=== PATIENT | female | born 1965 | race Caucasian/White ===

== ENCOUNTER 2018-08-10 14:09 | Inpatient (IN) ==
[2018-08-10] MEDS ORDERED: D5% in Water 1,000 ML IVC PRN (19:18)
[2018-08-10] MEDS ORDERED: *HR* Dextrose 50 % in Water (Syg) 50 ML SYRINGE IVP PRN (19:18)
[2018-08-10] MEDS ORDERED: Dextrose Gel 15 GM/37.5 ML TUBE PO PRN ×2 (19:18)
[2018-08-10] MEDS ORDERED: Mag Hydrox/Al Hydrox/Simeth 30 ML UDC PO PRN (19:23)
[2018-08-10] MEDS ORDERED: *HR* LORazepam 1 MG TABLET PO PRN (19:30)
[2018-08-10] MEDS: Budesonide/Formoterol 160/4.5 1 PUFF INH IH SCH (20:08)
[2018-08-10] MEDS: Insulin LISPRO 300 UNITS/3 ML VIAL SQ SCH (20:24)
[2018-08-10] MEDS: *HR* OxyCODONE Immed Rel 5 MG TABLET PO PRN (20:27)
[2018-08-10] MEDS: Famotidine 20 MG TABLET PO SCH (20:27)
[2018-08-10] MEDS: Sennosides/Docusate Sodium TABLET PO SCH (20:27)
[2018-08-11] MEDS: *HR* Enoxaparin 40 MG/0.4 ML SYRINGE SQ SCH (05:10)
[2018-08-11] MEDS: *HR* OxyCODONE Immed Rel 5 MG TABLET PO PRN ×3 (05:11→21:45)
[2018-08-11 05:45] LABS: Basophils # 0.1 K/mcL (0.0-0.2); Basophils % 0.5 %; Eosinophils # 0.2 K/mcL (0.0-0.6); Eosinophils % 1.6 %; Hematocrit 40.8 % (35.3-44.9); Immature Granulocytes % 0.4 % (0-4); Lymphocytes % 17.7 %; Mean Corpuscular HGB Conc 31.9 g/dL (31.6-35.5); Mean Corpuscular Hemoglobin 28.8 pg (28.0-33.3); Mean Corpuscular Volume 90.5 fL (83.0-100.0); Mean Platelet Volume 9.8 fL (9.4-12.4); Monocytes # 0.8 K/mcL (0.0-1.3); Monocytes % 6.7 %; Neutrophils # 8.3 K/mcL (1.6-8.9); Platelet Count 233 K/mcL (140-400); Red Blood Count 4.51 M/mcL (3.82-4.97); Red Cell Distribution Width 12.9 % (11.5-14.5); Segmented Neutrophils % 73.1 %
[2018-08-11 05:46] LABS: INR 1.1; Prothrombin Time 12.4 Seconds (9.4-12.1)
[2018-08-11 05:49] LABS: Activated Partial Thrombo Time 36.7 Seconds (26.0-36.0)
[2018-08-11] MEDS: Insulin LISPRO 300 UNITS/3 ML VIAL SQ SCH ×4 (08:27→21:36)
[2018-08-11] MEDS: hydroCHLOROthiazide 25 MG TABLET PO SCH (08:28)
[2018-08-11] MEDS: Acetaminophen 325 MG TABLET PO PRN ×2 (08:28→18:19)
[2018-08-11] MEDS: Famotidine 20 MG TABLET PO SCH ×2 (08:29→21:45)
[2018-08-11] MEDS: Sennosides/Docusate Sodium TABLET PO SCH ×2 (08:29→21:46)
[2018-08-11] MEDS: *HR* Metformin 500 MG TABLET PO SCH ×2 (08:29→18:19)
[2018-08-11] MEDS: INSULIN GLARGINE SQ SCH (08:31)
[2018-08-11] MEDS: [UNRECOGNIZED DRUG - OTHER] PO SCH (08:31)
[2018-08-11] MEDS: Budesonide/Formoterol 160/4.5 1 PUFF INH IH SCH ×2 (10:35→21:48)
[2018-08-11] MEDS: Fluticasone Propionate Nasal 50 MCG/SPRAY BOTTLE NS SCH (13:39)
[2018-08-11 13:41] LABS: Bilirubin,Urine Negative (Negative); Blood,Urine Trace-intact (Negative); Clarity,Urine Clear (Clear); Color,Urine Yellow (Yellow); Glucose,Urine (UA) Normal (Normal); Ketones,Urine Trace mg/dL (Negative); Leukocyte Esterase,Urine Trace (Negative); Nitrite,Urine Negative (Negative); Protein,Urine Negative (Neg-Trace); Specific Gravity,Urine 1.025 (1.010-1.025); Urobilinogen,Urine Normal (Normal)
[2018-08-11 13:49] LABS: RBC,Urine 0-3 per hpf (0-3); WBC,Urine 0-3 per hpf (0-3)
[2018-08-11 13:50] LABS: Squamous Epithelial Cell,Urine Few per lpf (None-Few)
--- NOTE | 2018-08-11 13:55 | Psychological Evaluation ---
Date of Encounter: 08/11/18 Time of Encounter: 01:10 History of Present Illness History of present illness: Ms. Archer is a 53 year old female admitted for left tibia fracture. She stated she slipped in laundry room abd heard her leg snap as she went down. Past Medical History - Psychiatric History Psychiatric history: Reports: bipolar, panic disorder Additional Psychiatric History: Stated she has history of counseling and has been diagnosed with "mild" bipolar () and panic disorder (2010). Home Medications and Allergies Albuterol Sulfate [Proair HFA] 2 puff IH QID 04/02/15 [History] Budesonide/Formoterol 160/4.5 [Symbicort] 2 puff IH BIDR 04/02/15 [History] Fluticasone Propionate Nasal [Flonase] 2 spray NS DAILY 04/02/15 [History] Tiotropium [Spiriva] 1 cap IH DAILY 04/02/15 [History] Albuterol Neb [Proventil Neb] 2.5 mg IH Q4HR PRN 12/29/15 [History] Bumetanide [Bumex] 2 mg PO DAILY 12/29/15 [History] Citalopram Hydrobromide [Celexa] 40 mg PO DAILY 12/29/15 [History] Metformin HCl [Fortamet] 1,000 mg PO BID 12/29/15 [History] Montelukast [Singulair] 10 mg PO HS 12/29/15 [History] Omeprazole [PriLOSEC] 20 mg PO DAILY 12/29/15 [History] Lisinopril-HCTZ 20-12.5 [Prinzide 20-12.5] 1 each PO DAILY #30 tablet 07/04/16 [Rx] Biotin 5 mg PO DAILY 02/26/17 [History] Cholecalciferol (D-3) [Vitamin D] 1,000 unit PO DAILY 02/26/17 [History] EPINEPHrine [Auvi-Q] 0.3 mg IJ DAILY PRN 02/26/17 [History] Ibuprofen [Motrin] 800 mg PO Q8HR PRN 02/26/17 [History] L.acidoph,Paracasei, B.lactis [Probiotic] 1 cap PO DAILY 02/26/17 [History] LORazepam [Ativan] 1 mg PO HS 02/26/17 [History] Magnesium Oxide [Magnesium] 500 mg PO DAILY 02/26/17 [History] Oxygen 1 each .ROUTE AD 02/26/17 [History] Pramipexole [Mirapex] 1.5 mg PO TID 02/26/17 [History] Guaifenesin [Mucinex] 600 mg PO BID PRN #20 tab.er.12h 06/27/17 [Rx] levoFLOXacin [Levofloxacin] 500 mg PO DAILY #10 tablet 06/27/17 [Rx] predniSONE [PredniSONE] 60 mg PO DAILY #5 tablet 06/27/17 [Rx] predniSONE [PredniSONE] 60 mg PO DAILY #9 tablet 02/05/18 [Rx] Allergy/AdvReac Type Severity Reaction Status Date / Time aspirin [ASA] Allergy Nose Bleed Verified 08/06/18 17:22 clarithromycin [From Biaxin] Allergy Anaphylaxis Verified 08/06/18 17:22 clindamycin Allergy Anaphylaxis Verified 08/06/18 17:22 doxycycline Allergy Anaphylaxis Verified 08/06/18 17:22 sulfamethoxazole Allergy Anaphylaxis Verified 08/06/18 17:22 [From Bactrim] trimethoprim [From Bactrim] Allergy Anaphylaxis Verified 08/06/18 17:22 venom-honey bee Allergy Nausea Verified 08/06/18 17:22 [bee venom (honey bee)] Social History - Social History Social History: Pt is a since 2013. She has 2 adult sons and 3 grandchildren. One of her adult son's recently moved in with her due to separation from . 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 - Alcohol Use Alcohol Use: unknown - Drug Use Drug Use: none Cognitive/Emotional Assessment - Cognitive Ability Abstract Thinking Ability: No Deficits Noted Verbal Communication Ability: Conversational Style Level of Alertness: Alert Speech Pattern: Normal rate Thought Process: Logical - Emotional Status Mood Description: Depressed, Anxious Affect Description: Full range Coping Ability: Verbalizes positive coping skills Additional Findings: She is having nightmares and awakening with reliving the fall and hearing the break. Assessment & Plan - Diagnosis (1) Adjustment disorder with mixed anxiety and depressed mood - Prognosis Prognosis: Good - Treatment Plan Treatment Plan/Recommendations: Reviewed deep breathing techniques, visual imagery. Downloaded Calm efraín and she will use different techniques within to calm self at night and set tone for more relaxed sleep. Treatment Frequency: will see next week if inpatient to evaluate mood and relaxation strategies. Next Session Date: 08/18/18 Procedures - Participants Therapy Participant: Patient - Session Time Session Start Time: 01:10 Session Stop Time: 01:40
--- NOTE | 2018-08-11 14:42 | Internal Med History&Physical ---
Addendum entered and electronically signed by Daquan Kaiser MD 08/12/18 16:05: I have personally performed a face to face evaluation on this patient. I have r eviewed and agree with the care plan. History and Exam by me shows: The patient was evaluated by me yesterday but the note was not complete. This documentation is being completed today for that reason. Patient's H&P is reviewed at length. She has a tibial plateau fracture and had external fixation by Dr. Nielsen at [place] for this. She is to have definitive repair, and about a week. This was delayed because of "swelling in the area." She is to have surgery again in about a week after her swelling has gone down. She has an external fixator and told the physical therapy staff that this is to move her leg. She is doing well except for no bowel movement, postop. She denies breathing or other problems. We reviewed her medications and corrected a couple minor problems. She does not use oxygen at home. Diabetes is pretty well controlled and we told her that we would need to consider the use of long-acting insulin as her home medication is not available to her here. On review of systems, she has dentition that needs to be repaired at several locations. She does not wear dentures. She is diagnosed with COPD but states this is been stable, recently. She has a history of intermittent cellulitis of her lower extremities, bilaterally. The erythema that is developing on her right jj, she is concerned about, as this is away her cellulitis usually starts. Patient has no complaint of chest discomfort, dyspnea, orthopnea, breathing problems, palpitations, nausea or vomiting, constipation or diarrhea, other changes in bowel habits, heartburn, difficulty with urination, kidney problems or kidney stones, fevers chills or sweats, rash or itching, seizures, headache or lightheadedness, heat or cold intolerance, blood problems or anemia, or other new complaints, except as mentioned above. Review of systems is otherwise negative. Examination: (Except as mentioned above): General: In no apparent distress, alert and oriented 3. Head: Atraumatic and normocephalic. Eyes: Extraocular muscles are intact, pupils equal round and reactive to light and accommodation. Sclerae anicteric. Ears: External ears are normal to inspection and hearing is grossly normal. Nose: Patent without lesion noted. Mouth: No intraoral lesions seen. Dentition is noted to have multiple caries or fractures. Neck: Supple with trachea midline. There is no thyromegaly or adenopathy and carotids are 2+ without bruit heard. Respiratory: No use of accessory muscles. Lungs are clear throughout. Normal airflow. Cardiovascular: Regular rate and rhythm without murmur appreciated. Abdomen: Bowel sounds are normal. No hepatosplenomegaly masses or tenderness. Obese and therefore difficult to palpate deeply. Extremities: No cyanosis clubbing or edema. She has an external fixator at her left lower extremity. There is marked erythema of her left calf which could represent an early cellulitis. There is no drainage, at this time, at the fixator sites. Neurological: A and O 3. Cranial nerves II through XII are intact. No focal deficits and no abnormal movements or postures. Skin: Warm and non-diaphoretic with no lesions noted. Breasts, pelvic and rectal: Not examined. She will begin therapy and we will have nursing find out when she is to have danette aj, next week so we may adjust her medications. We will use Levemir for long-acting coverage as well as sliding scale insulin. This will be started slowly so that we do not cause hypoglycemia. Because of the redness of her wound areas and calf, we will treat her empirically with vancomycin and ask for a culture of her minimal wound drainage. We will place her in isolation and obtain nasal swabs, for this reason. Because of her swelling and immobility, she will be treated with Lovenox for deep venous thrombosis prevention. Original Note: Date of Encounter: 08/11/18 Time of Encounter: 14:38 Assessment and Plan (1) Tibial plateau fracture Current visit: Yes Status: Acute Pain controlled with oxycodone. PT and OT to eval and treat. Will follow progress. Has history of MR and 2 distal pin sites with moderate amount of serous singleness drainage, slight edema and diffuse redness. wound cultures pending. Follow up with ortho as scheduled. Qualifiers: Encounter type: sequela Fracture type: closed Laterality: left Qualified Code(s): S82.142S - Displaced bicondylar fracture of left tibia, sequela (2) COPD (chronic obstructive pulmonary disease) Current visit: Yes Status: Acute Controlled with inhaled meds. Continue oxygen per nasal cannula. Wears 2 and half liters at home. Qualifiers: COPD type: unspecified COPD Qualified Code(s): J44.9 - Chronic obstructive pulmonary disease, unspecified (3) Tobacco use disorder Current visit: Yes Status: Acute Thirty-year 1 pack a day history. Denies any cravings or need for a nicotine patch at this time. (4) Diabetes type 2, controlled Current visit: Yes Status: Acute Controlled with current medication. Continue to monitor fingerstick blood sugar. Sliding scale insulin. Diabetic diet. 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 Monitor blood pressure. Qualifiers: Hypertension type: essential hypertension Qualified Code(s): I10 - Essential (primary) hypertension (6) History of MRSA infection Current visit: Yes Status: Acute wound cultures obtained to LLE pin sites. (7) Cellulitis of left lower extremity Current visit: Yes Status: Acute Wound cultures obtained and IV vancomycin ordered. Will monitor closely. Internal Medicine - H&P: HPI Admitted From: Hospital to Hospital Transfer Plans for Post Hospital Care: Home History of present illness: Ms. Archer is a 53 year old female [facility]. Patient sustained fracture after falling in her laundry room. States she felt the crack prior to the fall. States pain is controlled with oxycodone. PT and OT to eval and treat. Denies fever, chills, nausea vomiting or diarrhea. States last bowel movement was yesterday. Patient is a current smoker with a 30 year 1 pack a day history. Denies any cravings or need for nicotine patch at this time. Lives in a one level home with son. Wears oxygen at 2.5 L per nasal cannula at home. Past medical history includes anxiety, asthma, bipolar disorder, cellulitis, COPD, diabetes, fibromyalgia, hypertension, migraines, obesity, panic attacks and seizures, sleep apnea and history of MR DOWELL. Past Med Surg Social Fam HX - Past Medical History Medical history: arthritis, asthma, COPD, diabetes, GERD, hyperlipidemia, hypertension, seizures, other Additional medical history: Seizures as child, Osteoarthritis, Fibromyalgia, Cellulitis Psychiatric history: anxiety, bipolar, depression, panic disorder - Past Surgical History Surgical History: , herniorrhaphy, hysterectomy, other Additional surgical history: Left Tib Fracture, Umbilical Hernia Repair - Social History Smoking Status: Current every day smoker Packs per day: 1 Smokeless Tobacco Status: No Alcohol use: unknown Drug use: none - Family History Father Living Status: Still Living Hx Family Cardiac Disorders: Yes Grandmother Hx Family Cardiac Disorders: Yes Internal Medicine - H&P: Meds Albuterol Sulfate [Proair HFA] 2 puff IH QID 04/02/15 [History] Budesonide/Formoterol 160/4.5 [Symbicort] 2 puff IH BIDR 04/02/15 [History] Fluticasone Propionate Nasal [Flonase] 2 spray NS DAILY 04/02/15 [History] Tiotropium [Spiriva] 1 cap IH DAILY 04/02/15 [History] Albuterol Neb [Proventil Neb] 2.5 mg IH Q4HR PRN 12/29/15 [History] Bumetanide [Bumex] 2 mg PO DAILY 12/29/15 [History] Citalopram Hydrobromide [Celexa] 40 mg PO DAILY 12/29/15 [History] Metformin HCl [Fortamet] 1,000 mg PO BID 12/29/15 [History] Montelukast [Singulair] 10 mg PO HS 12/29/15 [History] Omeprazole [PriLOSEC] 20 mg PO DAILY 12/29/15 [History] Lisinopril-HCTZ 20-12.5 [Prinzide 20-12.5] 1 each PO DAILY #30 tablet 07/04/16 [Rx] Biotin 5 mg PO DAILY 02/26/17 [History] Cholecalciferol (D-3) [Vitamin D] 1,000 unit PO DAILY 02/26/17 [History] EPINEPHrine [Auvi-Q] 0.3 mg IJ DAILY PRN 02/26/17 [History] Ibuprofen [Motrin] 800 mg PO Q8HR PRN 02/26/17 [History] L.acidoph,Paracasei, B.lactis [Probiotic] 1 cap PO DAILY 02/26/17 [History] LORazepam [Ativan] 1 mg PO HS 02/26/17 [History] Magnesium Oxide [Magnesium] 500 mg PO DAILY 02/26/17 [History] Oxygen 1 each .ROUTE AD 02/26/17 [History] Pramipexole [Mirapex] 1.5 mg PO TID 02/26/17 [History] Guaifenesin [Mucinex] 600 mg PO BID PRN #20 tab.er.12h 06/27/17 [Rx] levoFLOXacin [Levofloxacin] 500 mg PO DAILY #10 tablet 06/27/17 [Rx] predniSONE [PredniSONE] 60 mg PO DAILY #5 tablet 06/27/17 [Rx] predniSONE [PredniSONE] 60 mg PO DAILY #9 tablet 02/05/18 [Rx] Allergy/AdvReac Type Severity Reaction Status Date / Time aspirin [ASA] Allergy Nose Bleed Verified 08/06/18 17:22 clarithromycin [From Biaxin] Allergy Anaphylaxis Verified 08/06/18 17:22 clindamycin Allergy Anaphylaxis Verified 08/06/18 17:22 doxycycline Allergy Anaphylaxis Verified 08/06/18 17:22 sulfamethoxazole Allergy Anaphylaxis Verified 08/06/18 17:22 [From Bactrim] trimethoprim [From Bactrim] Allergy Anaphylaxis Verified 08/06/18 17:22 venom-honey bee Allergy Nausea Verified 08/06/18 17:22 [bee venom (honey bee)] All Systems PM: A 10-system review of systems was performed and is negative for pertinent findings except as documented above in the HPI. - Constitutional Constitutional: no chills, no fever(s), no night sweats - EENT Eyes: no change in vision, no discharge, no pain, no photophobia Ears: no ear discharge, no ear pain, no tinnitus Nose, mouth and throat: no dysphagia, no nasal discharge, no neck pain, no sore throat - Cardiovascular Cardiovascular ROS IM: no chest pain, no diaphoresis, no dyspnea, no lightheadedness, no palpitations, no syncope - Respiratory Respiratory: no cough, no dyspnea, no wheezing, no excessive phlegm production - Gastrointestinal Gastrointestinal: no abdominal pain, no diarrhea, no hematemesis, no hematochezia, no melena, no nausea, no vomiting - Genitourinary Genitourinary: no change in urinary stream, no dysuria, no flank pain, no hematuria - Musculoskeletal Musculoskeletal ROS IM: no numbness, no tingling - Integumentary Integumentary IM: no rash, no unusual bruising - Neurological Neurological ROS: no confusion, no convulsions, no focal weakness, no numbness, no tingling, no tremor(s) - Hematologic/Lymphatic Hematologic/Lymphatic: no easy bruising - Constitutional Vitals: Temp Pulse Resp BP Pulse Ox 97.9 F 90 15 122/71 94 08/11/18 12:01 08/11/18 12:01 08/11/18 12:08/11/18 12:08/11/18 12:01 General appearance: Present: cooperative, A&O X 3, morbidly obese, pleasant, answers questions appropriately - Head Head exam: Present: atraumatic, normocephalic - Eye Eye exam: Present: PERRL, conjuntiva pink, sclera anicteric Pupils: Present: PERRL - Neck Neck exam general surgery: Present: supple, trachea midline. Absent: lymphadenopathy - Respiratory Respiratory exam: Present: CTAB. Absent: accessory muscle use, rales, rhonchi, wheezes - Cardiovascular Cardiovascular exam: Present: RRR, +S1, +S2. Absent: diastolic murmur, gallop, rubs, systolic murmur - GI/Abdominal GI/Abdominal exam: Present: normal bowel sounds, soft, no peritoneal signs. Absent: distended, tenderness - Extremities Exam Extremities exam: Present: warm, radial pulses palpable and symmetrical. Absent: calf tenderness, cyanotic, pedal edema Additional comments: External fixator device to left lower extremity with four pin sites. lower 2 pin sites with redness and slight swelling surrounding with serousanguinous-mod amt of drainage. - Neurological Exam Neurological exam: Present: CN II-XII intact, oriented X3, no focal deficits. Absent: pronater drift, facial droop, speech deficit - Skin Skin exam: Present: dry, intact Internal Med - H&P Results - Labs CBC & Chem 7: 08/11/18 05:35 Labs: Short CBC 08/11/18 Range/Units 05:35 WBC 11.4 H (4.3-11.1) K/mcL Hgb 13.0 (11.5-15.4) g/dL Hct 40.8 (35.3-44.9) % Plt Count 233 (140-400) K/mcL Neutrophils # 8.3 (1.6-8.9) K/mcL Urine 08/11/18 Range/Units 13:35 Urine Color Yellow (Yellow) Urine Clarity Clear (Clear) Urine pH 7.0 (5.0-8.0) pH Units Ur Specific [place] 1.025 (1.010-1.025) Urine Protein Negative (Neg-Trace) mg/dL Urine Glucose (UA) Normal (Normal) mg/dL
[2018-08-11] MEDS ORDERED: Vancomycin 1 EACH in 0.9 % Sodium Chloride 250 ML IVPB SCH (15:00)
[2018-08-11 15:36] LABS: BUN/Creatinine Ratio 18 (6-26); Blood Urea Nitrogen 12 mg/dL (6-20); eGFR For Non-African Americans > 60 (> 60)
[2018-08-11] MEDS: Insulin DETEMIR 100 UNIT/ML X5UNITS SQ SCH (21:46)
[2018-08-12] MEDS: Acetaminophen 325 MG TABLET PO PRN ×2 (02:13→08:51)
[2018-08-12] MEDS: *HR* OxyCODONE Immed Rel 5 MG TABLET PO PRN ×3 (06:10→21:02)
[2018-08-12] MEDS: *HR* Enoxaparin 40 MG/0.4 ML SYRINGE SQ SCH (06:11)
[2018-08-12] MEDS: Fluticasone Propionate Nasal 50 MCG/SPRAY BOTTLE NS SCH (08:41)
[2018-08-12] MEDS: hydroCHLOROthiazide 25 MG TABLET PO SCH (08:41)
[2018-08-12] MEDS: Sennosides/Docusate Sodium TABLET PO SCH ×2 (08:42→20:55)
[2018-08-12] MEDS: Famotidine 20 MG TABLET PO SCH ×2 (08:42→20:53)
[2018-08-12] MEDS: *HR* Metformin 500 MG TABLET PO SCH ×2 (08:42→16:53)
[2018-08-12] MEDS: Budesonide/Formoterol 160/4.5 1 PUFF INH IH SCH ×2 (08:52→21:04)
[2018-08-12] MEDS: [UNRECOGNIZED DRUG - OTHER] PO SCH (08:54)
[2018-08-12] MEDS: INSULIN GLARGINE SQ SCH (08:54)
[2018-08-12] MEDS: Insulin LISPRO 300 UNITS/3 ML VIAL SQ SCH ×4 (08:57→21:00)
--- NOTE | 2018-08-12 10:46 | Internal Med Progress Note ---
Addendum entered and electronically signed by Daquan Kaiser MD 08/12/18 15:54: I have personally performed a face to face evaluation on this patient. I have r eviewed and agree with the care plan. History and Exam by me shows: Patient is without complaint. She is pleased that she had a bowel movement this afternoon. She is to go for surgery tomorrow to have her leg repaired. She has no other issues except she is feeling very tired. We reviewed with patient and nursing her medications in anticipation of a surgery tomorrow. Discussed care with other providers and/or nursing. Patient has no complaint of chest discomfort, dyspnea, orthopnea, palpitations, nausea or vomiting, constipation or diarrhea, other changes in bowel habits, difficulty with urination, rash or itching, or other new complaints, except as mentioned above. Review of systems is otherwise negative. Examination: (Except as mentioned above): General: In no apparent distress. Alert and oriented 3. Nondiaphoretic. Head: Atraumatic and normocephalic. Respiratory: No use of accessory muscles. Lungs are clear throughout. Normal airflow. Cardiovascular: Regular rate and rhythm without murmur appreciated. Abdomen: Bowel sounds are normal. No hepatosplenomegaly mass or tenderness appreciated. Obese and therefore difficult to palpate deeply. Extremities: No cyanosis clubbing or edema. Skin: Warm and non-diaphoretic with no new lesions noted. Lovenox was stopped and her antihypertensive is to be given with a sip of water tomorrow morning at 0300. Original Note: Date of Encounter: 08/12/18 Time of Encounter: 10:44 - Assessment and plan (1) Comminuted fracture of shaft of tibia Current Visit: Yes Status: Acute Assessment and plan: Patient with external fixation to left thigh and leg, which appears to be intact. Patient with small amount of serous drainage from distal leg pin sites. Anterior left leg with erythema and is warm to touch. Patient with remote history of MRSA and has been started on vancomycin due to cellulitis of the left lower leg. Patient being prepared for possible surgery tomorrow at [facility]. Patient's status is being communicated to orthopedic surgeon for further orders and preop instructions. Patient is remained afebrile. Patient continues to have slight muscle spasms to her left leg but otherwise states that her pain has been very tolerable. We will continue with current plan of care Qualifiers: Encounter type: subsequent encounter Fracture type: closed Fracture alignment: displaced Laterality: left Fracture healing: with nonunion Qualified Code(s): S82.252K - Displaced comminuted fracture of shaft of left tibia, subsequent encounter for closed fracture with nonunion (2) COPD (chronic obstructive pulmonary disease) Current Visit: Yes Status: Acute Assessment and plan: No acute issues. Patient's lungs are clear throughout. We will continue with current medications. Qualifiers: COPD type: unspecified COPD Qualified Code(s): J44.9 - Chronic obstructive pulmonary disease, unspecified (3) Diabetes type 2, controlled Current Visit: Yes Status: Acute Assessment and plan: Acute issues. Patient's glucoses been fairly well controlled less than 200. We will continue with sliding scale coverage. 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 We will continue with current medications. Qualifiers: Hypertension type: essential hypertension Qualified Code(s): I10 - Essential (primary) hypertension (5) Constipation Current Visit: Yes Status: Acute Assessment and plan: Patient states no BM in several days. Abdomen appears distended but remains soft and nontender. Patient denies any abdominal cramping or nausea. We will review patient's scheduled laxatives. We will give a immediate acting laxative at home. Qualifiers: Constipation type: unspecified constipation type Qualified Code(s): K59.00 - Constipation, unspecified - Time Spent With Patient less than 15 minutes - Subjective Interval history: Patient appears relaxed. Patient states that she occasionally has a intermittent muscle spasm type pain to her left leg. Patient states that her pain has been tolerable with current pain medications. Patient denies any fever or chills. Patient does state she has had no BM in several days. Patient abdom en appears slightly distended, but soft with patient denying any abdominal cramping or nausea. Patient does state that she has been passing flatus - Constitutional Vitals: Temp Pulse Resp BP Pulse Ox 97.3 F L 87 18 126/59 92 08/12/18 07:00 08/12/18 07:00 08/12/18 07:00 08/12/18 07:00 08/12/18 07:00 General appearance: Present: cooperative, A&O X 3, morbidly obese, pleasant, answers questions appropriately - Head Head exam: Present: atraumatic, normocephalic - Eye Eye exam: Present: PERRL, conjuntiva pink, sclera anicteric Pupils: Present: PERRL - Neck Neck exam general surgery: Present: supple, trachea midline. Absent: lymphadenopathy - Respiratory Respiratory exam: Present: CTAB. Absent: accessory muscle use, rales, rhonchi, wheezes - Cardiovascular Cardiovascular exam: Present: RRR, +S1, +S2. Absent: diastolic murmur, gallop, rubs, systolic murmur - GI/Abdominal GI/Abdominal exam: Present: distended, normal bowel sounds, soft, no peritoneal signs. Absent: tenderness Additional comments: Abdomen appears distended, but soft and nontender. Sounds were heard to all quadrants. - Extremities Exam Extremities exam: Present: normal capillary refill, tenderness, warm, radial pulses palpable and symmetrical. Absent: calf tenderness, cyanotic, pedal edema Additional comments: Left thigh and leg with external fixation device in place. Noted slight serous type drainage from tenderness to distal leg. Lower leg very erythemic. - Neurological Exam Neurological exam: Present: CN II-XII intact, oriented X3, no focal deficits. Absent: pronater drift, facial droop, speech deficit - Skin Skin exam: Present: dry, intact Internal Medicine: Result - Labs CBC & Chem 7: 08/11/18 05:35 08/11/18 15:06 Labs: BMP 08/11/18 15:06 BUN 12 Creatinine 0.65 Urine 08/11/18 Range/Units 13:35 Urine Color Yellow (Yellow) Urine Clarity Clear (Clear) Urine pH 7.0 (5.0-8.0) pH Units Ur Specific [place] 1.025 (1.010-1.025) Urine Protein Negative (Neg-Trace) mg/dL Urine Glucose (UA) Normal (Normal) mg/dL - ABG Interpretation ABG results: PT/INR, D-dimer PT 12.4 Seconds (9.4-12.1) H 08/11/18 05:35 Consult Discharge Plan - Plan Referrals: Yu Cruz APN [Primary Care Provider] -
[2018-08-12] MEDS: Insulin DETEMIR 100 UNIT/ML X5UNITS SQ SCH (21:01)
[2018-08-13] MEDS: *HR* OxyCODONE Immed Rel 5 MG TABLET PO PRN ×2 (02:54→17:52)
[2018-08-13] MEDS: *HR* Enoxaparin 40 MG/0.4 ML SYRINGE SQ SCH (05:22)
[2018-08-13] MEDS ORDERED: Aminoglycoside Consult 1 EACH MC ONE (07:36)
[2018-08-13] MEDS: Budesonide/Formoterol 160/4.5 1 PUFF INH IH SCH ×2 (10:52→22:19)
[2018-08-13] MEDS: Insulin LISPRO 300 UNITS/3 ML VIAL SQ SCH ×3 (11:33→22:16)
[2018-08-13] MEDS: Fluticasone Propionate Nasal 50 MCG/SPRAY BOTTLE NS SCH (11:34)
[2018-08-13] MEDS: Famotidine 20 MG TABLET PO SCH ×2 (11:34→22:15)
[2018-08-13] MEDS: [UNRECOGNIZED DRUG - OTHER] PO SCH (11:34)
[2018-08-13] MEDS: *HR* Metformin 500 MG TABLET PO SCH ×2 (11:34→17:52)
[2018-08-13] MEDS: hydroCHLOROthiazide 25 MG TABLET PO SCH (11:34)
[2018-08-13] MEDS: Sennosides/Docusate Sodium TABLET PO SCH ×2 (11:35→22:15)
--- NOTE | 2018-08-13 13:22 | Internal Med Progress Note ---
Date of Encounter: 08/13/18 Time of Encounter: 13:21 - Subjective Interval history: Patient not seen today because she is having surgery at [place]. - Constitutional Vitals: Temp Pulse Resp BP Pulse Ox 99.4 F 91 17 117/64 94 08/12/18 18:59 08/12/18 18:59 08/12/18 18:59 08/12/18 18:59 08/12/18 18:59 Internal Medicine: Result - Labs CBC & Chem 7: 08/11/18 05:35 08/11/18 15:06 - ABG Interpretation ABG results: PT/INR, D-dimer PT 12.4 Seconds (9.4-12.1) H 08/11/18 05:35 Consult Discharge Plan - Plan Referrals: Yu Cruz APN [Primary Care Provider] -
[2018-08-13] MEDS: *HR* OxyCODONE/APAP 5/325 TABLET PO PRN ×2 (22:14→22:57)
[2018-08-13] MEDS: Insulin DETEMIR 100 UNIT/ML X5UNITS SQ SCH (22:18)
[2018-08-14] MEDS: *HR* OxyCODONE/APAP 5/325 TABLET PO PRN ×3 (04:48→20:32)
[2018-08-14] MEDS: *HR* Enoxaparin 40 MG/0.4 ML SYRINGE SQ SCH (04:50)
[2018-08-14 06:20] LABS: Bilirubin,Urine Negative (Negative); Blood,Urine Moderate (Negative); Clarity,Urine Clear (Clear); Color,Urine Yellow (Yellow); Glucose,Urine (UA) Normal (Normal); Ketones,Urine Negative (Negative); Leukocyte Esterase,Urine Small (Negative); Nitrite,Urine Negative (Negative); Protein,Urine Negative (Neg-Trace); Urobilinogen,Urine Normal (Normal)
[2018-08-14 06:34] LABS: Bacteria,Urine Few per hpf (None-Few); Squamous Epithelial Cell,Urine Many per lpf (None-Few); Yeast,Urine Many per hpf (None Seen)
[2018-08-14] MEDS: hydroCHLOROthiazide 25 MG TABLET PO SCH (08:16)
[2018-08-14] MEDS: Famotidine 20 MG TABLET PO SCH ×2 (08:17→20:32)
[2018-08-14] MEDS: Sennosides/Docusate Sodium TABLET PO SCH ×2 (08:17→20:32)
[2018-08-14] MEDS: Insulin LISPRO 300 UNITS/3 ML VIAL SQ SCH ×4 (08:18→20:34)
[2018-08-14] MEDS: *HR* Metformin 500 MG TABLET PO SCH ×2 (08:18→16:38)
[2018-08-14] MEDS: [UNRECOGNIZED DRUG - OTHER] PO SCH (08:19)
[2018-08-14] MEDS: Fluticasone Propionate Nasal 50 MCG/SPRAY BOTTLE NS SCH (08:19)
[2018-08-14] MEDS: Budesonide/Formoterol 160/4.5 1 PUFF INH IH SCH ×2 (08:22→20:33)
--- NOTE | 2018-08-14 14:17 | Internal Med Progress Note ---
Date of Encounter: 08/14/18 Time of Encounter: 10:00 - Assessment and plan (1) Tibial plateau fracture, left Current Visit: Yes Status: Acute Assessment and plan: She seems to be stable after her corrective surgery, yesterday. She will continue with therapy as tolerated, with advance in activity, as directed by them. Qualifiers: Encounter type: subsequent encounter Fracture type: closed Fracture healing: with routine healing Qualified Code(s): S82.142D - Displaced bicondylar fracture of left tibia, subsequent encounter for closed fracture with routine healing (2) Adjustment disorder with mixed anxiety and depressed mood Current Visit: Yes Status: Acute Assessment and plan: Clinically stable. We will continue home regimen and follow. (3) COPD (chronic obstructive pulmonary disease) Current Visit: Yes Status: Acute Assessment and plan: This seems to be stable with current regimen. Qualifiers: COPD type: unspecified COPD Qualified Code(s): J44.9 - Chronic obstructive pulmonary disease, unspecified (4) Tobacco use disorder Current Visit: Yes Status: Acute Assessment and plan: On nicotine patch and patient is strongly encouraged to quit smoking. (5) Hypertension Current Visit: Yes Status: Acute Assessment and plan: This is well-controlled, currently. Qualifiers: Hypertension type: essential hypertension Qualified Code(s): I10 - Essential (primary) hypertension (6) Diabetes type 2, controlled Current Visit: Yes Status: Acute Assessment and plan: We will continue current regimen including sliding scale. 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 Qualifiers: Constipation type: unspecified constipation type Qualified Code(s): K59.00 - Constipation, unspecified - Subjective Interval history: Patient is still having pain after surgery. She states that she feels like it is "going back to day 1." She is moving her bowels. Breathing is okay. No other acute changes. We discussed her frustration with the transfer here from [facility] and was told by a number of people that this was a poor communication episode at the [facility]. She states that they tried to blame it on [place] and that she "stuck up for us." Patient was interviewed in the presence of her son who is concerned about home health aide upon her discharge. Patient has no complaint of chest discomfort, dyspnea, orthopnea, palpitations, nausea or vomiting, constipation or diarrhea, other changes in bowel habits, d ifficulty with urination, rash or itching, or other new complaints, except as mentioned above. Review of systems is otherwise negative. I discussed management of her care with nursing staff. - Constitutional Vitals: Temp Pulse Resp BP Pulse Ox 97.5 F L 94 18 109/63 89 08/14/18 08:00 08/14/18 08:00 08/14/18 08:00 08/14/18 08:00 08/14/18 08:00 Exam: Examination: (Except as mentioned above): General: In no apparent distress. Alert and oriented 3. Nondiaphoretic. Head: Atraumatic and normocephalic. Respiratory: No use of accessory muscles. Lungs are clear throughout. Normal a irflow. Cardiovascular: Regular rate and rhythm without murmur appreciated. Abdomen: Bowel sounds are normal. No hepatosplenomegaly mass or tenderness appreciated. Morbidly obese and therefore difficult to palpate deeply. Extremities: No cyanosis clubbing or edema. She has anterior and posterior calf tenderness which is consistent with her recent surgery. Of note, she has less swelling and less erythema at the left pretibial region. Skin: Warm and non-diaphoretic with no new lesions noted. Internal Medicine: Result - Labs CBC & Chem 7: 08/11/18 05:35 08/11/18 15:06 Labs: Urine 08/14/18 Range/Units 06:00 Urine Color Yellow (Yellow) Urine Clarity Clear (Clear) Urine pH 6.0 (5.0-8.0) pH Units Ur Specific [place] 1.020 (1.010-1.025) Urine Protein Negative (Neg-Trace) mg/dL Urine Glucose (UA) Normal (Normal) mg/dL - ABG Interpretation ABG results: PT/INR, D-dimer PT 12.4 Seconds (9.4-12.1) H 08/11/18 05:35 Consult Discharge Plan - Plan Referrals: Yu Cruz APN [Primary Care Provider] -
[2018-08-14] MEDS: Insulin DETEMIR 100 UNIT/ML X5UNITS SQ SCH (20:33)
[2018-08-15] MEDS: *HR* OxyCODONE/APAP 5/325 TABLET PO PRN ×5 (02:35→23:21)
[2018-08-15] MEDS: *HR* Enoxaparin 40 MG/0.4 ML SYRINGE SQ SCH (05:52)
[2018-08-15] MEDS: Insulin LISPRO 300 UNITS/3 ML VIAL SQ SCH ×4 (07:58→20:57)
[2018-08-15] MEDS: hydroCHLOROthiazide 25 MG TABLET PO SCH (07:59)
[2018-08-15] MEDS: Fluticasone Propionate Nasal 50 MCG/SPRAY BOTTLE NS SCH (07:59)
[2018-08-15] MEDS: Famotidine 20 MG TABLET PO SCH ×2 (07:59→21:05)
[2018-08-15] MEDS: [UNRECOGNIZED DRUG - OTHER] PO SCH (08:00)
[2018-08-15] MEDS: *HR* Metformin 500 MG TABLET PO SCH ×2 (08:00→17:06)
[2018-08-15] MEDS: Sennosides/Docusate Sodium TABLET PO SCH ×2 (08:00→21:04)
[2018-08-15] MEDS: Budesonide/Formoterol 160/4.5 1 PUFF INH IH SCH ×2 (10:30→21:05)
--- NOTE | 2018-08-15 15:18 | Internal Med Progress Note ---
Date of Encounter: 08/16/18 Time of Encounter: 15:16 - Assessment and plan (1) Tibial plateau fracture, left Current Visit: Yes Status: Acute Assessment and plan: Stable after recent ORIF surgery. She is doing well, postop. Qualifiers: Encounter type: subsequent encounter Fracture type: closed Fracture healing: with routine healing Qualified Code(s): S82.142D - Displaced bicondylar fracture of left tibia, subsequent encounter for closed fracture with routine healing (2) Adjustment disorder with mixed anxiety and depressed mood Current Visit: Yes Status: Acute Assessment and plan: She is seeming to be stable and will discuss follow-up with psychologist, this Thursday. (3) COPD (chronic obstructive pulmonary disease) Current Visit: Yes Status: Acute Assessment and plan: Clinically stable without symptoms or signs, currently. Qualifiers: COPD type: unspecified COPD Qualified Code(s): J44.9 - Chronic obstructive pulmonary disease, unspecified (4) Tobacco use disorder Current Visit: Yes Status: Acute Assessment and plan: No current issues. (5) Hypertension Current Visit: Yes Status: Acute Assessment and plan: Clinically controlled. Qualifiers: Hypertension type: essential hypertension Qualified Code(s): I10 - Essential (primary) hypertension (6) Diabetes type 2, controlled Current Visit: Yes Status: Acute Assessment and plan: Moderate control and will continue with current regimen and sliding scale in sulin coverage. Qualifiers: Diabetes mellitus skilled nursing insulin use: with long line teamster use Diabetes mellitus complication status: without complication Qualified Code(s): E11.9 - Type 2 diabetes mellitus without complications; Z79.4 - shelter (current) use of insulin (7) Constipation Current Visit: Yes Status: Acute Assessment and plan: I encouraged the use of laxatives so that she would not have a bowel movement, at least by tomorrow. Qualifiers: Constipation type: unspecified constipation type Qualified Code(s): K59.00 - Constipation, unspecified - Subjective Interval history: Patient is feeling better with persistent pain he had likes alternating her muscle relaxants with pain medicines. She is otherwise doing well. She has no problems with bowels but has not moved her bowels for 2 days. We discussed the use of laxative if no movement by tomorrow. Patient has no complaint of chest discomfort, dyspnea, orthopnea, palpitations, nausea or vomiting, constipation or diarrhea, other changes in bowel habits, difficulty with urination, rash or itching, or other new complaints, except as mentioned above. Review of systems is otherwise negative. I discussed management of her care with nursing staff. - Constitutional Vitals: Temp Pulse Resp BP Pulse Ox 97.4 F L 94 18 126/68 95 08/15/18 07:41 08/15/18 07:41 08/15/18 07:41 08/15/18 07:41 08/15/18 07:41 Exam: Examination: (Except as mentioned above): General: In no apparent distress. Alert and oriented 3. Nondiaphoretic. Head: Atraumatic and normocephalic. Respiratory: No use of accessory muscles. Lungs are clear throughout. Normal airflow. Cardiovascular: Regular rate and rhythm without murmur appreciated. Abdomen: Bowel sounds are normal. No hepatosplenomegaly mass or tenderness appreciated. Morbidly obese and therefore difficult to palpate deeply. Extremities: No cyanosis clubbing or edema. Wraps left calf, dressing is not removed. Definitely tender, as expected, but less than before. Skin: Warm and non-diaphoretic with no new lesions noted. Internal Medicine: Result - Labs CBC & Chem 7: 08/16/18 05:22 08/16/18 05:22 - ABG Interpretation ABG results: PT/INR, D-dimer PT 12.4 Seconds (9.4-12.1) H 08/11/18 05:35 Consult Discharge Plan - Plan Referrals: Yu Cruz APN [Primary Care Provider] -
[2018-08-15] MEDS: Insulin DETEMIR 100 UNIT/ML X5UNITS SQ SCH (21:05)
[2018-08-16] MEDS: *HR* OxyCODONE/APAP 5/325 TABLET PO PRN ×2 (05:08→11:24)
[2018-08-16] MEDS: *HR* Enoxaparin 40 MG/0.4 ML SYRINGE SQ SCH (05:08)
[2018-08-16 05:49] LABS: Basophils % 0.4 %; Eosinophils # 0.2 K/mcL (0.0-0.6); Eosinophils % 2.6 %; Hematocrit 31.7 % (35.3-44.9); Hemoglobin 10.4 g/dL (11.5-15.4); Immature Granulocytes % 0.5 % (0-4); Lymphocytes # 1.9 K/mcL (0.6-4.6); Lymphocytes % 22.9 %; Mean Corpuscular HGB Conc 32.8 g/dL (31.6-35.5); Mean Corpuscular Hemoglobin 29.2 pg (28.0-33.3); Mean Platelet Volume 9.9 fL (9.4-12.4); Monocytes # 0.6 K/mcL (0.0-1.3); Monocytes % 6.8 %; Neutrophils # 5.5 K/mcL (1.6-8.9); Platelet Count 281 K/mcL (140-400); Red Blood Count 3.56 M/mcL (3.82-4.97); Red Cell Distribution Width 12.6 % (11.5-14.5); Segmented Neutrophils % 66.8 %
[2018-08-16 06:09] LABS: Alanine Aminotransferase 28 Units/L (7-52); Albumin 3.6 g/dL (3.5-5.7); Albumin/Globulin Ratio 1.2 (1.1-2.2); Alkaline Phosphatase 126 Units/L (34-104); Aspartate Amino Transferase 26 Units/L (13-39); BUN/Creatinine Ratio 16 (6-26); Bilirubin,Total 0.8 mg/dL (0.3-1.0); Blood Urea Nitrogen 10 mg/dL (6-20); Calcium 9.1 mg/dL (8.6-10.3); Carbon Dioxide 35 mEq/L (23-29); Chloride 93 mEq/L (98-107); Globulin 3.1 g/dL (2.4-3.5); Glucose 184 mg/dL (70-105); Osmolality,Calculated 286 (280-300); Potassium 3.4 mEq/L (3.5-5.1); Sodium 136 mEq/L (136-145); Total Protein 6.7 g/dL (6.4-8.9); eGFR For Non-African Americans > 60 (> 60)
[2018-08-16] MEDS: Budesonide/Formoterol 160/4.5 1 PUFF INH IH SCH ×2 (07:48→19:13)
[2018-08-16] MEDS: *HR* Metformin 500 MG TABLET PO SCH ×2 (08:06→15:59)
[2018-08-16] MEDS: Famotidine 20 MG TABLET PO SCH ×2 (08:06→21:57)
[2018-08-16] MEDS: Sennosides/Docusate Sodium TABLET PO SCH ×2 (08:06→21:58)
[2018-08-16] MEDS: hydroCHLOROthiazide 25 MG TABLET PO SCH (08:06)
[2018-08-16] MEDS: [UNRECOGNIZED DRUG - OTHER] PO SCH (08:10)
[2018-08-16] MEDS: Fluticasone Propionate Nasal 50 MCG/SPRAY BOTTLE NS SCH (08:13)
[2018-08-16] MEDS: Insulin LISPRO 300 UNITS/3 ML VIAL SQ SCH ×4 (08:14→21:56)
--- NOTE | 2018-08-16 13:26 | Internal Med Progress Note ---
Date of Encounter: 08/16/18 Time of Encounter: 13:24 - Assessment and plan (1) Tibial plateau fracture Current Visit: Yes Status: Inactive Assessment and plan: Continue PT and OT. Monitor progress. Continue Percocet and Flexeril. Follow up with ortho as scheduled. Qualifiers: Encounter type: sequela Fracture type: closed Laterality: left Qualified Code(s): S82.142S - Displaced bicondylar fracture of left tibia, s equela (2) COPD (chronic obstructive pulmonary disease) Current Visit: Yes Status: Acute Assessment and plan: Controlled with inhaled meds. Continue oxygen per nasal cannula. Qualifiers: COPD type: unspecified COPD Qualified Code(s): J44.9 - Chronic obstructive pulmonary disease, unspecified (3) Tobacco use disorder Current Visit: Yes Status: Acute (4) Diabetes type 2, controlled Current Visit: Yes Status: Acute Assessment and plan: Controlled with current medication. Continue to monitor fingerstick blood sugar. Continue insulin per sliding scale. Qualifiers: Diabetes mellitus exterminator termite insulin use: with penitentiary use Diabetes mellitus complication status: without complication Qualified Code(s): E11.9 - Type 2 diabetes mellitus without complications; Z79.4 - long term care administrator (current) use of insulin (5) Hypertension Current Visit: Yes Status: Acute Assessment and plan: Controlled with current medication. Monitor blood pressure. Qualifiers: Hypertension type: essential hypertension Qualified Code(s): I10 - Essential (primary) hypertension (6) History of MRSA infection Current Visit: Yes Status: Acute - Time Spent With Patient less than 15 minutes - Subjective Interval history: Participating well with therapy. Taking Flexeril and Percocet for pain. Patient states this is controlled. On chronic O2. Maintaining O2 sats. 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 Has been having increased tearfulness. States she just gets discouraged and has to talk herself into things with a lot of support. - Constitutional Vitals: Temp Pulse Resp BP Pulse Ox 97.9 F 81 18 119/75 95 08/16/18 07:03 08/16/18 07:03 08/16/18 07:03 08/16/18 07:03 08/16/18 07:03 General appearance: Present: cooperative, A&O X 3, morbidly obese, pleasant, answers questions appropriately - Head Head exam: Present: atraumatic, normocephalic - Eye Eye exam: Present: PERRL, conjuntiva pink, sclera anicteric Pupils: Present: PERRL - Neck Neck exam general surgery: Present: supple, trachea midline. Absent: lymphadenopathy - Respiratory Respiratory exam: Present: CTAB. Absent: accessory muscle use, rales, rhonchi, wheezes - Cardiovascular Cardiovascular exam: Present: RRR, +S1, +S2. Absent: diastolic murmur, gallop, rubs, systolic murmur - GI/Abdominal GI/Abdominal exam: Present: normal bowel sounds, soft, no peritoneal signs. Absent: distended, tenderness - Extremities Exam Extremities exam: Present: warm, radial pulses palpable and symmetrical. Absent: calf tenderness, cyanotic, pedal edema - Incison Comments: Left lower extremity dressing dry and intact. Kiran wrap's. - Neurological Exam Neurological exam: Present: CN II-XII intact, oriented X3, no focal deficits. Absent: pronater drift, facial droop, speech deficit - Skin Skin exam: Present: dry, intact Internal Medicine: Result - Labs CBC & Chem 7: 08/16/18 05:22 08/16/18 05:22 Labs: Short CBC 08/16/18 Range/Units 05:22 WBC 8.2 (4.3-11.1) K/mcL Hgb 10.4 L D (11.5-15.4) g/dL Hct 31.7 L (35.3-44.9) % Plt Count 281 (140-400) K/mcL Neutrophils # 5.5 (1.6-8.9) K/mcL BMP 08/16/18 05:22 Sodium 136 Potassium 3.4 L Chloride 93 L Carbon Dioxide 35 H BUN 10 Creatinine 0.62 Glucose 184 H Calcium 9.1 Liver Function 08/16/18 Range/Units 05:22 Total Bilirubin 0.8 (0.3-1.0) mg/dL AST 26 (13-39) Units/L ALT 28 (7-52) Units/L Alkaline Phosphatase 126 H (34-104) Units/L Albumin 3.6 (3.5-5.7) g/dL - ABG Interpretation ABG results: PT/INR, D-dimer PT 12.4 Seconds (9.4-12.1) H 08/11/18 05:35 Consult Discharge Plan - Plan Referrals: Yu Cruz APN [Primary Care Provider] -
[2018-08-16] MEDS: *HR* OxyCODONE Immed Rel 5 MG TABLET PO PRN (18:45)
--- NOTE | 2018-08-16 18:47 | Physcial Medicine-Consult Note ---
Date of Encounter: 08/16/18 Time of Encounter: 17:30 Physical Medicine - AP (1) Adjustment disorder with mixed anxiety and depressed mood Status: Acute Assessment and plan: She seems to be having anxiety in therapies. I switched her prn Atiivan to 0.5mg TID scheduled, at least until she adjusts better to her current challenges. She was not taking the higher dose because it knocks her out. Code(s): F43.23 - Adjustment disorder with mixed anxiety and depressed mood SNOMED Code(s): 26202044 (2) Constipation Status: Acute Assessment and plan: No BM for several days. She has good bowel sounds, and I am optimistic she go soon. If not, may need to use a more aggressive bowel program. Code(s): K59.00 - Constipation, unspecified SNOMED Code(s): 32254871 (3) Tibial plateau fracture, left Status: Acute Assessment and plan: Pain is not adequately managed. Given her obesity and volume of distribution, as well as, her younger age, I have changed her Percocet to Oxycodone IR 10MG Q 4hrs prn pain. Code(s): S82.142A - Displaced bicondylar fracture of left tibia, initial encounter for closed fracture SNOMED Code(s): 989036337 Physical Medicine - HPI - Data of Consult Requesting Physician: Daquan Kaiser MD Primary Care Provider: Yu Cruz APN - Consult Narrative History of present illness: Ms. Archer is a 53 year old female who fell in her laundry room at home on 08-06-2018, sustaining a comminuted left tibial fracture. She initially had external fixiter for a few days, then went on to ORIF. She has been making slow progress on IPR with pain and anxiety issues in PT. Today, she rates her pain worst at an 8, best at a 3, average a 7. She has constipation and is taking the laxitives. She has a fear of falling again and concerns about going home and functioning intermittently alone at night. She denies numbness in left foot. She states her appetite is fair. CC: My leg hurts. Past Med Surg Social Fam HX - Past Medical History Medical history: arthritis, asthma, COPD, diabetes, fibromyalgia, GERD, hyperlipidemia, hypertension, seizures, other Additional medical history: Seizures as child, Osteoarthritis, Fibromyalgia, Cellulitis Psychiatric history: anxiety, bipolar, depression, panic disorder - Past Surgical History Surgical History: , herniorrhaphy, hysterectomy, other Additional surgical history: Left Tib Fracture, Umbilical Hernia Repair - Social History Smoking Status: Current every day smoker Packs per day: 1 Smokeless Tobacco Status: No Alcohol use: unknown Drug use: none - Family History Father Living Status: Still Living Hx Family Cardiac Disorders: Yes Grandmother Hx Family Cardiac Disorders: Yes Medications and Allergies Albuterol Sulfate [Proair HFA] 2 puff IH QID 04/02/15 [History] Budesonide/Formoterol 160/4.5 [Symbicort] 2 puff IH BIDR 04/02/15 [History] Fluticasone Propionate Nasal [Flonase] 2 spray NS DAILY 04/02/15 [History] Tiotropium [Spiriva] 1 cap IH DAILY 04/02/15 [History] Albuterol Neb [Proventil Neb] 2.5 mg IH Q4HR PRN 12/29/15 [History] Bumetanide [Bumex] 2 mg PO DAILY 12/29/15 [History] Citalopram Hydrobromide [Celexa] 40 mg PO DAILY 12/29/15 [History] Metformin HCl [Fortamet] 1,000 mg PO BID 12/29/15 [History] Montelukast [Singulair] 10 mg PO HS 12/29/15 [History] Omeprazole [PriLOSEC] 20 mg PO DAILY 12/29/15 [History] Lisinopril-HCTZ 20-12.5 [Prinzide 20-12.5] 1 each PO DAILY #30 tablet 07/04/16 [Rx] Biotin 5 mg PO DAILY 02/26/17 [History] Cholecalciferol (D-3) [Vitamin D] 1,000 unit PO DAILY 02/26/17 [History] EPINEPHrine [Auvi-Q] 0.3 mg IJ DAILY PRN 02/26/17 [History] Ibuprofen [Motrin] 800 mg PO Q8HR PRN 02/26/17 [History] L.acidoph,Paracasei, B.lactis [Probiotic] 1 cap PO DAILY 02/26/17 [History] LORazepam [Ativan] 1 mg PO HS 02/26/17 [History] Magnesium Oxide [Magnesium] 500 mg PO DAILY 02/26/17 [History] Oxygen 1 each .ROUTE AD 02/26/17 [History] Pramipexole [Mirapex] 1.5 mg PO TID 02/26/17 [History] Guaifenesin [Mucinex] 600 mg PO BID PRN #20 tab.er.12h 06/27/17 [Rx] levoFLOXacin [Levofloxacin] 500 mg PO DAILY #10 tablet 06/27/17 [Rx] predniSONE [PredniSONE] 60 mg PO DAILY #5 tablet 06/27/17 [Rx] predniSONE [PredniSONE] 60 mg PO DAILY #9 tablet 02/05/18 [Rx] Allergy/AdvReac Type Severity Reaction Status Date / Time aspirin [ASA] Allergy Nose Bleed Verified 08/06/18 17:22 clarithromycin [From Biaxin] Allergy Anaphylaxis Verified 08/06/18 17:22 clindamycin Allergy Anaphylaxis Verified 08/06/18 17:22 doxycycline Allergy Anaphylaxis Verified 08/06/18 17:22 sulfamethoxazole Allergy Anaphylaxis Verified 08/06/18 17:22 [From Bactrim] trimethoprim [From Bactrim] Allergy Anaphylaxis Verified 08/06/18 17:22 venom-honey bee Allergy Nausea Verified 08/06/18 17:22 [bee venom (honey bee)] All systems: reviewed and no additional remarkable complaints except as stated (see HPI) Physical Medicine - Exam - Constitutional Vitals: Temp Pulse Resp BP Pulse Ox 97.9 F 81 18 119/75 95 08/16/18 07:03 08/16/18 07:03 08/16/18 07:03 08/16/18 07:03 08/16/18 07:03 General appearance: morbidly obese, no acute distress - Head Head exam: Present: atraumatic, normocephalic - Eye Eye exam: Present: EOMI - ENT ENT exam: Present: mucous membranes moist - Neck Neck exam: Present: full ROM - Respiratory Respiratory exam: Present: decreased breath sounds - Cardiovascular Cardiovascular exam: Present: RRR - GI/Abdominal GI/Abdominal exam: Present: distended, normal bowel sounds - Extremities Exam Additional comments: LLE in valerie wrap thigh to MTP joints. Pt.can wiggle toes. Good sensation to light touch. No edema. - Psychiatric Psychiatric exam: Present: anxious - Skin Additional comments: Incision(s) LLE not taken down for exam. Physical Medicine - Results - Labs CBC & Chem 7: 08/16/18 05:22 08/16/18 05:22 Labs: Short CBC 08/16/18 Range/Units 05:22 WBC 8.2 (4.3-11.1) K/mcL Hgb 10.4 L D (11.5-15.4) g/dL Hct 31.7 L (35.3-44.9) % Plt Count 281 (140-400) K/mcL Neutrophils # 5.5 (1.6-8.9) K/mcL BMP 08/16/18 05:22 Sodium 136 Potassium 3.4 L Chloride 93 L Carbon Dioxide 35 H BUN 10 Creatinine 0.62 Glucose 184 H Calcium 9.1 Liver Function 08/16/18 Range/Units 05:22 Total Bilirubin 0.8 (0.3-1.0) mg/dL AST 26 (13-39) Units/L ALT 28 (7-52) Units/L Alkaline Phosphatase 126 H (34-104) Units/L Albumin 3.6 (3.5-5.7) g/dL Anemia, Hypokalemia, Hypercapnia, Hyperglycemia. Consult Discharge Plan - Plan Referrals: Yu Cruz APN [Primary Care Provider] -
[2018-08-16] MEDS: *HR* LORazepam 0.5 MG TABLET PO SCH (21:55)
[2018-08-16] MEDS: Insulin DETEMIR 100 UNIT/ML X5UNITS SQ SCH (22:00)
[2018-08-17] MEDS: *HR* OxyCODONE Immed Rel 5 MG TABLET PO PRN ×4 (00:10→15:30)
[2018-08-17] MEDS: *HR* Enoxaparin 40 MG/0.4 ML SYRINGE SQ SCH (06:07)
[2018-08-17] MEDS: hydroCHLOROthiazide 25 MG TABLET PO SCH (07:50)
[2018-08-17] MEDS: Famotidine 20 MG TABLET PO SCH ×2 (07:50→21:23)
[2018-08-17] MEDS: *HR* LORazepam 0.5 MG TABLET PO SCH ×3 (07:50→21:21)
[2018-08-17] MEDS: *HR* Metformin 500 MG TABLET PO SCH ×2 (07:50→16:45)
[2018-08-17] MEDS: Insulin LISPRO 300 UNITS/3 ML VIAL SQ SCH ×4 (07:50→21:24)
[2018-08-17] MEDS: [UNRECOGNIZED DRUG - OTHER] PO SCH (07:51)
[2018-08-17] MEDS: Fluticasone Propionate Nasal 50 MCG/SPRAY BOTTLE NS SCH (07:51)
[2018-08-17] MEDS: Sennosides/Docusate Sodium TABLET PO SCH ×2 (07:52→21:21)
[2018-08-17] MEDS: Budesonide/Formoterol 160/4.5 1 PUFF INH IH SCH ×2 (09:12→21:25)
--- NOTE | 2018-08-17 13:02 | Internal Med Progress Note ---
Addendum entered and electronically signed by Daquan Kaiser MD 08/17/18 13:20: I have personally performed a face to face evaluation on this patient. I have r eviewed and agree with the care plan. History and Exam by me shows: Patient is feeling relatively well. She is pleased that she is having less pain. We discussed the change in pain and anxiolytic medications prescribed by Dr. Nicolas. She still has not moved her bowels and I suggested again that she use magnesium citrate. Discussed care with other providers and/or nursing. Patient has no complaint of chest discomfort, dyspnea, orthopnea, palpitations, nausea or vomiting, constipation or diarrhea, other changes in bowel habits, difficulty with urination, rash or itching, or other new complaints, except as mentioned above. Review of systems is otherwise negative. Examination: (Except as mentioned above): General: In no apparent distress. Alert and oriented 3. Nondiaphoretic. Head: Atraumatic and normocephalic. Respiratory: No use of accessory muscles. Lungs are clear throughout. Normal airflow. Cardiovascular: Regular rate and rhythm without murmur appreciated. Abdomen: Bowel sounds are normal. No hepatosplenomegaly mass or tenderness appreciated. Morbidly obese and therefore difficult to palpate deeply. Patient is examined upright in chair and this also limits exam.. Extremities: No cyanosis clubbing or edema. Skin: Warm and non-diaphoretic with no new lesions noted. Original Note: Date of Encounter: 08/17/18 Time of Encounter: 13:01 - Assessment and plan (1) Tibial plateau fracture Current Visit: Yes Status: Inactive Assessment and plan: Continue PT and OT. Monitor progress. Continue Percocet and Flexeril. Follow up with ortho as scheduled. Qualifiers: Encounter type: sequela Fracture type: closed Laterality: left Qualified Code(s): S82.142S - Displaced bicondylar fracture of left tibia, sequela (2) COPD (chronic obstructive pulmonary disease) Current Visit: Yes Status: Acute Assessment and plan: Controlled with inhaled meds. Continue oxygen per nasal cannula. Qualifiers: COPD type: unspecified COPD Qualified Code(s): J44.9 - Chronic obstructive pulmonary disease, unspecified (3) Tobacco use disorder Current Visit: Yes Status: Acute (4) Diabetes type 2, controlled Current Visit: Yes Status: Acute Assessment and plan: Controlled with current medication. Continue to monitor fingerstick blood allen gar. Continue insulin per sliding scale. 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 Monitor blood pressure. Qualifiers: Hypertension type: essential hypertension Qualified Code(s): I10 - Essential (primary) hypertension (6) History of MRSA infection Current Visit: Yes Status: Acute - Subjective Interval history: Participating well with therapy. Taking Flexeril and Percocet for pain. percocet increased yesterday. pain controlled but has increased fatigue. On chronic O2. Maintaining O2 sats. 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 - Constitutional Vitals: Temp Pulse Resp BP Pulse Ox 98.0 F 83 18 109/67 92 08/17/18 07:11 08/17/18 07:11 08/17/18 09:19 08/17/18 07:11 08/17/18 09:19 General appearance: Present: cooperative, A&O X 3, morbidly obese, pleasant, answers questions appropriately - Head Head exam: Present: atraumatic, normocephalic - Eye Eye exam: Present: PERRL, conjuntiva pink, sclera anicteric Pupils: Present: PERRL - Neck Neck exam general surgery: Present: supple, trachea midline. Absent: lymphadenopathy - Respiratory Respiratory exam: Present: CTAB. Absent: accessory muscle use, rales, rhonchi, wheezes - Cardiovascular Cardiovascular exam: Present: RRR, +S1, +S2. Absent: diastolic murmur, gallop, rubs, systolic murmur - GI/Abdominal GI/Abdominal exam: Present: normal bowel sounds, soft, no peritoneal signs. Absent: distended, tenderness - Extremities Exam Extremities exam: Present: warm, radial pulses palpable and symmetrical. Absent: calf tenderness, cyanotic, pedal edema - Incison Comments: LLE drsg dry and intact with valerie wrap. - Neurological Exam Neurological exam: Present: CN II-XII intact, oriented X3, no focal deficits. Absent: pronater drift, facial droop, speech deficit - Skin Skin exam: Present: dry, intact Internal Medicine: Result - Labs CBC & Chem 7: 08/16/18 05:22 08/16/18 05:22 - ABG Interpretation ABG results: PT/INR, D-dimer PT 12.4 Seconds (9.4-12.1) H 08/11/18 05:35 Consult Discharge Plan - Plan Referrals: Yu Cruz APN [Primary Care Provider] -
[2018-08-17] MEDS: Insulin DETEMIR 100 UNIT/ML X5UNITS SQ SCH (21:25)
[2018-08-18] MEDS: *HR* OxyCODONE Immed Rel 5 MG TABLET PO PRN ×5 (01:02→22:57)
[2018-08-18] MEDS: *HR* Enoxaparin 40 MG/0.4 ML SYRINGE SQ SCH (05:50)
[2018-08-18] MEDS: Insulin LISPRO 300 UNITS/3 ML VIAL SQ SCH ×4 (08:30→21:19)
[2018-08-18] MEDS: hydroCHLOROthiazide 25 MG TABLET PO SCH (08:31)
[2018-08-18] MEDS: Fluticasone Propionate Nasal 50 MCG/SPRAY BOTTLE NS SCH (08:31)
[2018-08-18] MEDS: *HR* Metformin 500 MG TABLET PO SCH ×2 (08:32→16:39)
[2018-08-18] MEDS: Famotidine 20 MG TABLET PO SCH ×2 (08:32→21:18)
[2018-08-18] MEDS: *HR* LORazepam 0.5 MG TABLET PO SCH ×3 (08:32→21:16)
[2018-08-18] MEDS: Sennosides/Docusate Sodium TABLET PO SCH ×2 (08:33→21:22)
[2018-08-18] MEDS: [UNRECOGNIZED DRUG - OTHER] PO SCH (08:35)
[2018-08-18] MEDS: Budesonide/Formoterol 160/4.5 1 PUFF INH IH SCH ×2 (10:02→19:34)
--- NOTE | 2018-08-18 10:48 | Internal Med Progress Note ---
Addendum entered and electronically signed by Daquan Kaiser MD 08/18/18 10:51: I have personally performed a face to face evaluation on this patient. I have r eviewed and agree with the care plan. History and Exam by me shows: Patient is without acute complaint. She still had no bowel movement. She refused magnesium citrate last night because she did not want to have a problem with bowel movements while traveling to her orthopedic follow-up, today. She agrees to use magnesium citrate upon return. She is still having nightmares about fracturing her leg and falling again, this time and rather leg. She met with psychology today earlier. She feels somewhat dry like she will need to spend some time coughing stuff up but has no dyspnea or chest pressure. Discussed care with other providers and/or nursing. Patient has no complaint of chest discomfort, dyspnea, orthopnea, palpitations, nausea or vomiting, constipation or diarrhea, other changes in bowel habits, difficulty with urination, rash or itching, or other new complaints, except as mentioned above. Review of systems is otherwise negative. Examination: (Except as mentioned above): General: In no apparent distress. Alert and oriented 3. Nondiaphoretic. Head: Atraumatic and normocephalic. Respiratory: No use of accessory muscles. Lungs are clear throughout. Normal airflow. Cardiovascular: Regular rate and rhythm without murmur appreciated. Abdomen: Bowel sounds are normal. No hepatosplenomegaly mass or tenderness appreciated. Morbidly obese and therefore difficult to palpate deeply. Extremities: No cyanosis clubbing or edema. She still has tenderness at the anterior left tibia. Skin: Warm and non-diaphoretic with no new lesions noted. Original Note: Date of Encounter: 08/18/18 Time of Encounter: 10:46 - Assessment and plan (1) Comminuted fracture of shaft of tibia Current Visit: Yes Status: Inactive Assessment and plan: Patient with a Kiran wrap dressing to entire length of left leg. Just remains dry and intact. Distal CV checks them in normal. Patient states that her pain to her left leg has been managed better. Patient was appointment for follow-up with orthopedic surgeon this afternoon. Participating in physical therapy and progressing well. Qualifiers: Encounter type: subsequent encounter Fracture type: closed Fracture alignment: displaced Laterality: left Fracture healing: with nonunion Qualified Code(s): S82.252K - Displaced comminuted fracture of shaft of left tibia, subsequent encounter for closed fracture with nonunion (2) COPD (chronic obstructive pulmonary disease) Current Visit: Yes Status: Acute Assessment and plan: No acute issues. Patient's lungs are clear throughout upper mathis with diminished bases. We will continue with current medications. Qualifiers: COPD type: unspecified COPD Qualified Code(s): J44.9 - Chronic obstructive pulmonary disease, unspecified (3) Diabetes type 2, controlled Current Visit: Yes Status: Acute Assessment and plan: Acute issues. Patient's glucoses been fairly well controlled less than 200. We will continue with sliding scale coverage. 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 We will continue with current medications. Qualifiers: Hypertension type: essential hypertension Qualified Code(s): I10 - Essential (primary) hypertension (5) Constipation Current Visit: Yes Status: Acute Assessment and plan: Patient states continued constipation. Abdomen appears distended but remains soft and nontender. Patient denies any abdominal cramping or nausea. We will review patient's scheduled laxatives. We will give a immediate acting laxative at home. Qualifiers: Constipation type: unspecified constipation type Qualified Code(s): K59.00 - Constipation, unspecified - Time Spent With Patient less than 15 minutes - Subjective Interval history: Patient appears relaxed. Patient states that she occasionally has a intermittent muscle spasm type pain to her left leg, which she states has been improved since she has started taking her muscle relaxants. Patient also states that she takes when necessary Ativan which she feels has helped her relax.. Patient states that her pain has been tolerable with current pain medications. Patient denies any fever or chills. Patient states she continues to have some issues with constipation - Constitutional Vitals: Temp Pulse Resp BP Pulse Ox 97.0 F L 82 18 113/68 91 08/18/18 06:00 08/18/18 06:00 08/18/18 06:00 08/18/18 06:00 08/18/18 06:00 General appearance: Present: cooperative, A&O X 3, morbidly obese, pleasant, answers questions appropriately - Head Head exam: Present: atraumatic, normocephalic - Eye Eye exam: Present: PERRL, conjuntiva pink, sclera anicteric Pupils: Present: PERRL - Neck Neck exam general surgery: Present: supple, trachea midline. Absent: lymphadenopathy - Respiratory Respiratory exam: Present: CTAB. Absent: accessory muscle use, rales, rhonchi, wheezes Additional comments: Lungs are clear throughout upper mathis with diminished bases. Respiratory effort appears relaxed - Cardiovascular Cardiovascular exam: Present: RRR, +S1, +S2. Absent: diastolic murmur, gallop, rubs, systolic murmur - GI/Abdominal GI/Abdominal exam: Present: normal bowel sounds, soft, no peritoneal signs. Absent: distended, tenderness - Extremities Exam Extremities exam: Present: warm, radial pulses palpable and symmetrical. Absent: calf tenderness, cyanotic, pedal edema Additional comments: Left leg with Kiran wrap the entire length of thigh and leg which is dry and intact. No edema. Distal CV checks and been normal. - Neurological Exam Neurological exam: Present: CN II-XII intact, oriented X3, no focal deficits. Absent: pronater drift, facial droop, speech deficit - Skin Skin exam: Present: dry, intact Internal Medicine: Result - Labs CBC & Chem 7: 08/16/18 05:22 08/16/18 05:22 - ABG Interpretation ABG results: PT/INR, D-dimer PT 12.4 Seconds (9.4-12.1) H 08/11/18 05:35 Consult Discharge Plan - Plan Referrals: Yu Cruz APN [Primary Care Provider] -
--- NOTE | 2018-08-18 14:22 | Rehab Psychology Progress Note ---
Date of Encounter: 08/18/18 Time of Encounter: 10:00 Subjective - Patient Report Patient Report: Pt concerned with nightmares that wake her. The theme is falling and breaking her leg again.SHe states this is occurring 5/7 nights. She did report decrease in muscle spasms. - Symptoms Symptoms: Anxiety and nervous about returning home and fear of falling/reinjury. 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 Treatment Frequency: weekly Next Session Date: 08/25/18 (will review journal and use of Calm efraín)
--- NOTE | 2018-08-18 15:53 | Physical Med Progress Note ---
Date of Encounter: 08/18/18 Time of Encounter: 15:50 Assessment and Plan (1) Adjustment disorder with mixed anxiety and depressed mood Current Visit: Yes Status: Acute Assessment and plan: Seems to be better managed with the Ativan. She is not having any sedation or confusion. She is not having a panic attack anymore in therapy and is cooperative. Plan is to continue the Ativan even post discharge. (2) Constipation Current Visit: Yes Status: Acute Assessment and plan: She has had 2 bowel movements in the last 3 days and may actually have a third this evening. I think her constipation is resolving. Plan will be to continue bowel medicines. She may need them as long as she is on narcotic. Qualifiers: Constipation type: drug induced constipation Qualified Code(s): K59.03 - Drug induced constipation (3) Tibial plateau fracture, left Current Visit: Yes Status: Acute Assessment and plan: this is actually a tibia and fibula proximal fracture. I do not think it inv olved the tibial plateau. She has had ORIF. She is tolerating the narcotic dosing and is having reasonable relief of her pain now. She will likely need to go home and a wheelchair level and we are working on trying to get a ramp in for her. Plan will be to continue therapy and reassess her pain management Qualifiers: Encounter type: subsequent encounter Fracture type: closed Fracture healing: with routine healing Qualified Code(s): S82.142D - Displaced bicondylar fracture of left tibia, subsequent encounter for closed fracture with routine healing Physical Medicine-PN: Subj Interval history: Mrs. Archer returns from her trauma service follow-up. She has an appointment with the orthopedic surgeon on September 06. There were no new recommendations from the trauma service. She states her pain and anxiety are better managed now and she is making progress in all therapies. She is doing standing pivot transfer to the toilet using her walker. Her appetite is good and she has moved her bowels twice in the last 3 days. - Constitutional Vitals: Vital Signs Temp Pulse Resp BP Pulse Ox 08/18/18 06:00 97.0 F L 82 18 113/68 91 08/17/18 21:00 94 08/17/18 18:43 98.0 F 101 17 120/73 94 Intake and Output 08/17/18 08/18/18 08/18/18 23:59 07:59 15:59 Intake Total 860 / 860 Balance 860 / 860 Intake: Oral 860 / 860 Other: Meal Dinner Percent of Meal Consumed 100% Stool Size Small Stool Consistency soft # Voids 1 1 # Bowel Movements 1 Blood Glucose* 215 152 General appearance: cooperative, morbidly obese, no acute distress - Neck Neck exam: Present: full ROM - Respiratory Respiratory exam: Present: CTAB - Cardiovascular Cardiovascular exam: Present: RRR - GI/Abdominal GI/Abdominal exam: Present: normal bowel sounds, soft - Extremities Exam Additional comments: The left lower extremity is wrapped from the metatarsal phalangeal joints to the thigh. She is able to wiggle wiggle her toes. She is able to dorsiflex and plantarflex her ankle. There is no observable edema. Right lower extremity strength is good. No swelling. Range of motion is about -10 extension lag -55 degrees flexion. Therapy will be working on range of motion of the knee. - Neurological Exam Neurological exam: Present: abnormal gait, alert, CN II-XII intact, oriented X3 Additional comments: The toes on the left foot are intact to light touch. She actually has light touch sensation all the way up to the thigh. - Skin Skin exam: Present: abrasion (Multiple incisions just below the knee which are not observed. We are not supposed to be taking down her Kiran wrap dressing.), normal color, warm Additional comments: Incisions on LLE. These are not observed due to the Kiran wrap compression which is not to be taken down until seen by the neurosurgeon. No other skin breakdown is noted. - Additional findings Additional findings: X-rays show bleeding of the left proximal fibula and proximal tibia. Physical Medicine-PN: Obj Data - Labs CBC & Chem 7: 08/16/18 05:22 08/16/18 05:22 Labs: Laboratory Results - last 24 hr 08/17/18 08/17/18 16:20 20:14 POC Glucose 150 H 215 H Patient has mild hyperglycemia and mild anemia at 10.4. Mild hypokalemia at 3.4 - ABG Interpretation ABG results: PT/INR, D-dimer PT 12.4 Seconds (9.4-12.1) H 08/11/18 05:35 Consult Discharge Plan - Plan Referrals: Yu Cruz APN [Primary Care Provider] -
[2018-08-18] MEDS: Acetaminophen 325 MG TABLET PO PRN (21:16)
[2018-08-18] MEDS: Insulin DETEMIR 100 UNIT/ML X5UNITS SQ SCH (21:19)
[2018-08-19] MEDS: *HR* Enoxaparin 40 MG/0.4 ML SYRINGE SQ SCH (06:10)
[2018-08-19] MEDS: *HR* OxyCODONE Immed Rel 5 MG TABLET PO PRN ×4 (06:10→22:22)
[2018-08-19] MEDS: Fluticasone Propionate Nasal 50 MCG/SPRAY BOTTLE NS SCH (08:40)
[2018-08-19] MEDS: Famotidine 20 MG TABLET PO SCH ×2 (08:41→22:21)
[2018-08-19] MEDS: *HR* LORazepam 0.5 MG TABLET PO SCH ×3 (08:41→22:20)
[2018-08-19] MEDS: *HR* Metformin 500 MG TABLET PO SCH ×2 (08:41→17:23)
[2018-08-19] MEDS: Sennosides/Docusate Sodium TABLET PO SCH ×2 (08:41→22:21)
[2018-08-19] MEDS: hydroCHLOROthiazide 25 MG TABLET PO SCH (08:41)
[2018-08-19] MEDS: [UNRECOGNIZED DRUG - OTHER] PO SCH (08:42)
[2018-08-19] MEDS: Insulin LISPRO 300 UNITS/3 ML VIAL SQ SCH ×4 (08:42→22:22)
[2018-08-19] MEDS: Budesonide/Formoterol 160/4.5 1 PUFF INH IH SCH ×2 (09:39→22:22)
--- NOTE | 2018-08-19 15:07 | Internal Med Progress Note ---
Date of Encounter: 08/19/18 Time of Encounter: 11:45 - Assessment and plan (1) Tibial plateau fracture, left Current Visit: Yes Status: Acute Assessment and plan: We will continue therapy as planned. She was concerned about her home access. We discussed ramp, wheelchair access, etc. I deferred to physical and occupational therapy. Qualifiers: Encounter type: subsequent encounter Fracture type: closed Fracture healing: with routine healing Qualified Code(s): S82.142D - Displaced bicondylar fracture of left tibia, subsequent encounter for closed fracture with routine healing (2) Adjustment disorder with mixed anxiety and depressed mood Current Visit: Yes Status: Acute Assessment and plan: She still has "twitches" and is otherwise stable. (3) COPD (chronic obstructive pulmonary disease) Current Visit: Yes Status: Acute Assessment and plan: Clinically stable. Qualifiers: COPD type: unspecified COPD Qualified Code(s): J44.9 - Chronic obstructive pulmonary disease, unspecified (4) Tobacco use disorder Current Visit: Yes Status: Acute Assessment and plan: Again, we will need to ask that she continue her nicotine patch and stop smoking upon discharge. (5) Hypertension Current Visit: Yes Status: Acute Assessment and plan: Stable. Qualifiers: Hypertension type: essential hypertension Qualified Code(s): I10 - Essential (primary) hypertension (6) Diabetes type 2, controlled Current Visit: Yes Status: Acute Assessment and plan: Some high readings most acceptable and will continue sliding scale insulin. 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 Qualifiers: Constipation type: drug induced constipation Qualified Code(s): K59.03 - Drug induced constipation - Subjective Interval history: Patient had a large bowel movement last evening and is feeling a lot better. She is pleased with the decrease in pain in her left pretibial area although this persists. She has no other acute complaints and states she is breathing well, etc. Patient has no complaint of chest discomfort, dyspnea, orthopnea, palpitations, nausea or vomiting, constipation or diarrhea, other changes in bowel habits, difficulty with urination, rash or itching, or other new complaints, except as mentioned above. Review of systems is otherwise negative. I discussed management of her care with nursing staff. - Constitutional Vitals: Temp Pulse Resp BP Pulse Ox 98.1 F 98 18 106/70 91 08/19/18 07:00 08/19/18 07:00 08/19/18 09:43 08/19/18 07:00 08/19/18 09:43 Exam: Examination: (Except as mentioned above): General: In no apparent distress. Alert and oriented 3. Nondiaphoretic. She is not on oxygen. Head: Atraumatic and normocephalic. Respiratory: No use of accessory muscles. Lungs are clear throughout. Normal airflow. Cardiovascular: Regular rate and rhythm without murmur appreciated. Abdomen: Bowel sounds are normal. No hepatosplenomegaly mass or tenderness appreciated. Morbidly obese and therefore difficult to palpate deeply. Patient is examined upright in chair and this also limits exam. Extremities: No cyanosis clubbing or edema. Skin: Warm and non-diaphoretic with no new lesions noted. Internal Medicine: Result - Labs CBC & Chem 7: 08/16/18 05:22 08/16/18 05:22 - ABG Interpretation ABG results: PT/INR, D-dimer PT 12.4 Seconds (9.4-12.1) H 08/11/18 05:35 Consult Discharge Plan - Plan Referrals: Yu Cruz APN [Primary Care Provider] -
[2018-08-19] MEDS: Insulin DETEMIR 100 UNIT/ML X5UNITS SQ SCH (22:22)
[2018-08-20] MEDS: *HR* Enoxaparin 40 MG/0.4 ML SYRINGE SQ SCH (05:47)
[2018-08-20] MEDS: *HR* OxyCODONE Immed Rel 5 MG TABLET PO PRN ×4 (05:48→23:31)
[2018-08-20] MEDS: [UNRECOGNIZED DRUG - OTHER] PO SCH (08:32)
[2018-08-20] MEDS: Insulin LISPRO 300 UNITS/3 ML VIAL SQ SCH ×4 (08:46→21:02)
[2018-08-20] MEDS: *HR* LORazepam 0.5 MG TABLET PO SCH ×3 (08:47→20:58)
[2018-08-20] MEDS: *HR* Metformin 500 MG TABLET PO SCH ×2 (08:48→16:24)
[2018-08-20] MEDS: Sennosides/Docusate Sodium TABLET PO SCH ×2 (08:50→20:59)
[2018-08-20] MEDS: Famotidine 20 MG TABLET PO SCH ×2 (08:51→20:58)
[2018-08-20] MEDS: hydroCHLOROthiazide 25 MG TABLET PO SCH (08:52)
[2018-08-20] MEDS: Fluticasone Propionate Nasal 50 MCG/SPRAY BOTTLE NS SCH (08:53)
--- NOTE | 2018-08-20 10:22 | Internal Med Progress Note ---
Addendum entered and electronically signed by Jaqui Haley 08/22/18 12:56: I have personally performed a face to face evaluation on this patient. I have reviewed and agree with the care plan. Original Note: Date of Encounter: 08/20/18 Time of Encounter: 10:20 - Assessment and plan (1) Comminuted fracture of shaft of tibia Current Visit: Yes Status: Inactive Assessment and plan: Patient with a Kiran wrap dressing to entire length of left leg. Just remains dry and intact. Distal CV checks them in normal. Patient states that her pain to her left leg has been managed better. Patient had follow-up with orthopedic surgeon with only orders received was to maintain her Kiran wrap dressing in place until seen by him. Participating in physical therapy and progressing well. Qualifiers: Encounter type: subsequent encounter Fracture type: closed Fracture alignment: displaced Laterality: left Fracture healing: with nonunion Qualified Code(s): S82.252K - Displaced comminuted fracture of shaft of left tibia, subsequent encounter for closed fracture with nonunion (2) COPD (chronic obstructive pulmonary disease) Current Visit: Yes Status: Acute Assessment and plan: No acute issues. Patient's lungs are clear throughout upper mathis with diminished bases. We will continue with current medications. Qualifiers: COPD type: unspecified COPD Qualified Code(s): J44.9 - Chronic obstructive pulmonary disease, unspecified (3) Diabetes type 2, controlled Current Visit: Yes Status: Acute Assessment and plan: Acute issues. Patient's glucoses been fairly well controlled less than 200. We will continue with sliding scale coverage. Qualifiers: Diabetes mellitus roasterman insulin use: with custodial use Diabetes mellitus complication status: without complication Qualified Code(s): E11.9 - Type 2 diabetes mellitus without complications; Z79.4 - shelter (current) use of insulin (4) Hypertension Current Visit: Yes Status: Acute Assessment and plan: Vital signs are stable. We will continue with current medications. Qualifiers: Hypertension type: essential hypertension Qualified Code(s): I10 - Essential (primary) hypertension (5) Constipation Current Visit: Yes Status: Acute Assessment and plan: Patient states continued constipation. Abdomen appears distended but remains soft and nontender. Patient denies any abdominal cramping or nausea. We will review patient's scheduled laxatives. We will give 3 tabs of ducolax Qualifiers: Constipation type: drug induced constipation Qualified Code(s): K59.03 - Drug induced constipation - Time Spent With Patient less than 15 minutes - Subjective Interval history: Patient appears relaxed. Patient states that she occasionally has a intermittent muscle spasm type pain to her left leg, which she states has been improved since she has started taking her muscle relaxants. Patient also states that she takes when necessary Ativan which she feels has helped her relax.. Patient states that her pain has been tolerable with current pain medications. Patient denies any fever or chills. Patient states she continues to have some issues with constipation, stating that she has not had a BM in 2 days. - Constitutional Vitals: Temp Pulse Resp BP Pulse Ox 97.6 F 92 18 127/75 96 08/20/18 07:45 08/20/18 07:45 08/20/18 07:45 08/20/18 07:45 08/20/18 07:45 General appearance: Present: cooperative, A&O X 3, morbidly obese, pleasant, answers questions appropriately - Head Head exam: Present: atraumatic, normocephalic - Eye Eye exam: Present: PERRL, conjuntiva pink, sclera anicteric Pupils: Present: PERRL - Neck Neck exam general surgery: Present: supple, trachea midline. Absent: lymphadenopathy - Respiratory Respiratory exam: Present: CTAB. Absent: accessory muscle use, rales, rhonchi, wheezes - Cardiovascular Cardiovascular exam: Present: RRR, +S1, +S2. Absent: diastolic murmur, gallop, rubs, systolic murmur - GI/Abdominal GI/Abdominal exam: Present: normal bowel sounds, soft, no peritoneal signs. Absent: distended, tenderness - Extremities Exam Extremities exam: Present: warm, radial pulses palpable and symmetrical. Absent: calf tenderness, cyanotic, pedal edema Additional comments: Left leg continues with full-length Kiran wrap in place, which remains dry and intact. Distal CV checks normal - Neurological Exam Neurological exam: Present: CN II-XII intact, oriented X3, no focal deficits. Absent: pronater drift, facial droop, speech deficit - Skin Skin exam: Present: dry, intact Internal Medicine: Result - Labs CBC & Chem 7: 08/16/18 05:22 08/16/18 05:22 - ABG Interpretation ABG results: PT/INR, D-dimer PT 12.4 Seconds (9.4-12.1) H 08/11/18 05:35 Consult Discharge Plan - Plan Referrals: Yu Cruz APN [Primary Care Provider] -
[2018-08-20] MEDS: Budesonide/Formoterol 160/4.5 1 PUFF INH IH SCH ×2 (10:51→21:11)
[2018-08-20] MEDS: Insulin DETEMIR 100 UNIT/ML X5UNITS SQ SCH (20:59)
[2018-08-21] MEDS: *HR* Enoxaparin 40 MG/0.4 ML SYRINGE SQ SCH (06:01)
[2018-08-21] MEDS: Acetaminophen 325 MG TABLET PO PRN (06:11)
[2018-08-21] MEDS: *HR* LORazepam 0.5 MG TABLET PO SCH ×3 (08:24→22:55)
[2018-08-21] MEDS: Famotidine 20 MG TABLET PO SCH ×2 (08:24→22:57)
[2018-08-21] MEDS: Sennosides/Docusate Sodium TABLET PO SCH ×2 (08:24→22:57)
[2018-08-21] MEDS: Insulin LISPRO 300 UNITS/3 ML VIAL SQ SCH ×4 (08:25→22:55)
[2018-08-21] MEDS: *HR* Metformin 500 MG TABLET PO SCH ×2 (08:25→17:22)
[2018-08-21] MEDS: Fluticasone Propionate Nasal 50 MCG/SPRAY BOTTLE NS SCH (08:25)
[2018-08-21] MEDS: [UNRECOGNIZED DRUG - OTHER] PO SCH (08:27)
[2018-08-21] MEDS: Budesonide/Formoterol 160/4.5 1 PUFF INH IH SCH ×2 (13:25→22:57)
[2018-08-21] MEDS: *HR* OxyCODONE Immed Rel 5 MG TABLET PO PRN ×3 (13:27→22:58)
[2018-08-21] MEDS ORDERED: Artificial Tears SOLN 15 ML BOTTLE BOTH EYES PRN (15:54)
--- NOTE | 2018-08-21 17:50 | Internal Med Progress Note ---
Date of Encounter: 08/22/18 Time of Encounter: 12:40 - Subjective Interval history: - Assessment and plan (1) Comminuted fracture of shaft of tibia Current Visit: Yes Status: Inactive Assessment and plan: deconditioned. Patient with a Kiran wrap dressing to entire length of left leg. Area dry and intact. Pulses intact. Patient states that her pain to her left leg is controlled. Pt did see Ortho and Surgery was not indicated. Patient had follow-up with orthopedic surgeon with only orders received was to maintain her Kiran wrap dressing in place until seen by him. PT is not wt bearing on left leg. Participating in physical therapy and p rogressing well. Qualifiers: Encounter type: subsequent encounter Fracture type: closed Fracture alignment: displaced Laterality: left Fracture healing: with nonunion Qualified Code(s): S82.252K - Displaced comminuted fracture of shaft of left tibia, subsequent encounter for closed fracture with nonunion (2) COPD (chronic obstructive pulmonary disease) Current Visit: Yes Status: Acute Assessment and plan: No acute issues. Patient's lungs are clear throughout upper mathis with diminished bases. We will continue with current medications. Qualifiers: COPD type: unspecified COPD Qualified Code(s): J44.9 - Chronic obstructive pulmonary disease, unspecified (3) Diabetes type 2, controlled Current Visit: Yes Status: Acute Assessment and plan: Acute issues. Patient's glucoses been fairly well controlled less than 200. We will continue with sliding scale coverage. Pt has an volunteer manager as oupt. Pt has been on tradjenta. Pt states she is not routine about checking her blood sugar at home. She says she is aware of issues of diabetic care. She says she is planning to ask her endo about insulin pump in the future. Qualifiers: Diabetes mellitus long term care administrator insulin use: with long term care administrator use Diabetes mellitus complication status: without complication Qualified Code(s): E11.9 - Type 2 diabetes mellitus without complications; Z79.4 - oil heaterman (current) use of insulin (4) Hypertension Current Visit: Yes Status: Acute Assessment and plan: Vital signs are stable. We will continue with current medications. Qualifiers: Hypertension type: essential hypertension Qualified Code(s): I10 - Essential (primary) hypertension (5) Constipation Current Visit: Yes Status: Acute Assessment and plan: Patient states some relief. Abdomen appears distended but remains soft and nontender. Patient denies any abdominal cramping or nausea. Continue patient's scheduled laxatives. May have element of diabetic gastroparesis. Continue current treatment. Qualifiers: Constipation type: drug induced constipation Qualified Code(s): K59.03 - Drug induced constipation - Time Spent With Patient less than 15 minutes - Subjective Interval history: Patient has been doing well. Her mood is good today. Pt says she is eating better. Patient also states that she takes when necessary Ativan which she feels has helped her relax.. Patient states that her pain has been tolerable with current pain medications. Patient says she is sad over her best friend, her neighbor. Says this friend just got bad health news. EXAM - General appearance: Present: WF cooperative, A&O X 3, morbidly obese, pleasant, answers questions appropriately - Head Head exam: Present: atraumatic, normocephalic - Eye Eye exam: Present: PERRL, conjuntiva pink, sclera anicteric Pupils: Present: PERRL - Neck Neck exam general surgery: Present: supple, trachea midline. Absent: lymphadenopathy - Respiratory Respiratory exam: Present: CTAB. Absent: accessory muscle use, rales, rhonchi, wheezes - Cardiovascular Cardiovascular exam: Present: RRR, +S1, +S2. Absent: diastolic murmur, gallop, rubs, systolic murmur - GI/Abdominal GI/Abdominal exam: Present: normal bowel sounds, soft, no peritoneal signs. Absent: distended, tenderness - Extremities Exam Extremities exam: Present: warm, radial pulses palpable and symmetrical. Absent: calf tenderness, cyanotic, pedal edema Additional comments: Left leg continues with full-length Kiran wrap in place, which remains dry and intact. Distal CV checks normal - Neurological Exam Neurological exam: Present: CN II-XII intact, oriented X3, no focal deficits. Absent: pronater drift, facial droop, speech deficit - Skin Skin exam: Present: dry, intact - Constitutional Vitals: Temp Pulse Resp BP Pulse Ox 97.5 F L 82 16 114/67 97 08/21/18 07:40 08/21/18 07:40 08/21/18 07:40 08/21/18 07:40 08/21/18 07:40 General appearance: Present: cooperative, A&O X 3, morbidly obese, pleasant, answers questions appropriately Internal Medicine: Result - Labs CBC & Chem 7: 08/16/18 05:22 08/16/18 05:22 - ABG Interpretation ABG results: PT/INR, D-dimer PT 12.4 Seconds (9.4-12.1) H 08/11/18 05:35 Consult Discharge Plan - Plan Referrals: Yu Cruz APN [Primary Care Provider] -
[2018-08-21] MEDS: Insulin DETEMIR 100 UNIT/ML X5UNITS SQ SCH (22:58)
[2018-08-22] MEDS: *HR* Enoxaparin 40 MG/0.4 ML SYRINGE SQ SCH (05:59)
[2018-08-22] MEDS: *HR* OxyCODONE Immed Rel 5 MG TABLET PO PRN ×4 (06:00→21:55)
[2018-08-22] MEDS: Insulin LISPRO 300 UNITS/3 ML VIAL SQ SCH ×4 (08:34→21:54)
[2018-08-22] MEDS: Famotidine 20 MG TABLET PO SCH ×2 (08:35→21:54)
[2018-08-22] MEDS: *HR* Metformin 500 MG TABLET PO SCH ×2 (08:35→18:02)
[2018-08-22] MEDS: *HR* LORazepam 0.5 MG TABLET PO SCH ×3 (08:35→21:53)
[2018-08-22] MEDS: Sennosides/Docusate Sodium TABLET PO SCH ×2 (08:35→21:54)
[2018-08-22] MEDS: [UNRECOGNIZED DRUG - OTHER] PO SCH (08:38)
[2018-08-22] MEDS: Fluticasone Propionate Nasal 50 MCG/SPRAY BOTTLE NS SCH (08:38)
[2018-08-22] MEDS: Acetaminophen 325 MG TABLET PO PRN ×2 (08:52→14:10)
[2018-08-22] MEDS: Budesonide/Formoterol 160/4.5 1 PUFF INH IH SCH ×2 (10:16→21:55)
--- NOTE | 2018-08-22 13:20 | Internal Med Progress Note ---
Date of Encounter: 08/22/18 Time of Encounter: 01:20 - Subjective Interval history: - Assessment and plan (1) Comminuted fracture of shaft of tibia Current Visit: Yes Status: Inactive Assessment and plan: deconditioned. Patient with a Kiran wrap dressing to entire length of left leg. Area dry and intact. Pulses intact. Patient states that her pain to her left leg is controlled. Pt did see Ortho and Surgery was not indicated. Patient had follow-up with orthopedic surgeon with only orders received was to maintain her Kiran wrap dressing in place until seen by him. PT is not wt bearing on left leg. Participating in physical therapy and p rogressing well. Qualifiers: Encounter type: subsequent encounter Fracture type: closed Fracture alignment: displaced Laterality: left Fracture healing: with nonunion Qualified Code(s): S82.252K - Displaced comminuted fracture of shaft of left tibia, subsequent encounter for closed fracture with nonunion (2) COPD (chronic obstructive pulmonary disease) Current Visit: Yes Status: Acute Assessment and plan: No acute issues. Patient's lungs are clear throughout upper mathis with diminished bases. We will continue with current medications. Qualifiers: COPD type: unspecified COPD Qualified Code(s): J44.9 - Chronic obstructive pulmonary disease, unspecified (3) Diabetes type 2, controlled Current Visit: Yes Status: Acute Assessment and plan: Acute issues. Patient's glucoses been fairly well controlled less than 200. We will continue with sliding scale coverage. Pt has an montessori toddler teacher as oupt. Pt has been on tradjenta. Pt states she is not routine about checking her blood sugar at home. She says she is aware of issues of diabetic care. She says she is planning to ask her endo about insulin pump in the future. Qualifiers: Diabetes mellitus moth exterminator insulin use: with moth exterminator use Diabetes mellitus complication status: without complication Qualified Code(s): E11.9 - Type 2 diabetes mellitus without complications; Z79.4 - long term (current) use of insulin (4) Hypertension Current Visit: Yes Status: Acute Assessment and plan: Vital signs are stable. We will continue with current medications. Qualifiers: Hypertension type: essential hypertension Qualified Code(s): I10 - Essential (primary) hypertension (5) Constipation Current Visit: Yes Status: Acute Assessment and plan: Patient states some relief. Abdomen appears distended but remains soft and nontender. Patient denies any abdominal cramping or nausea. Continue patient's scheduled laxatives. May have element of diabetic gastroparesis. Continue current treatment. Qualifiers: Constipation type: drug induced constipation Qualified Code(s): K59.03 - Drug induced constipation - Time Spent With Patient less than 15 minutes - Subjective Interval history: Patient has been doing well. Her mood is good today. Pt says she is eating better. Patient also states that she takes when necessary Ativan which she feels has helped her relax.. Patient states that her pain has been tolerable with current pain medications. Patient says she is sad over her best friend, her neighbor. Says this friend just got bad health news. EXAM - General appearance: Present: WF cooperative, A&O X 3, morbidly obese, pleasant, answers questions appropriately - Head Head exam: Present: atraumatic, normocephalic - Eye Eye exam: Present: PERRL, conjuntiva pink, sclera anicteric Pupils: Present: PERRL - Neck Neck exam general surgery: Present: supple, trachea midline. Absent: lymphadenopathy - Respiratory Respiratory exam: Present: CTAB. Absent: accessory muscle use, rales, rhonchi, wheezes - Cardiovascular Cardiovascular exam: Present: RRR, +S1, +S2. Absent: diastolic murmur, gallop, rubs, systolic murmur - GI/Abdominal GI/Abdominal exam: Present: normal bowel sounds, soft, no peritoneal signs. Absent: distended, tenderness - Extremities Exam Extremities exam: Present: warm, radial pulses palpable and symmetrical. Absent: calf tenderness, cyanotic, pedal edema Additional comments: Left leg continues with full-length Kiran wrap in place, which remains dry and intact. Distal CV checks normal - Neurological Exam Neurological exam: Present: CN II-XII intact, oriented X3, no focal deficits. Absent: pronater drift, facial droop, speech deficit - Skin Skin exam: Present: dry, intact - Constitutional Vitals: Temp Pulse Resp BP Pulse Ox 98.6 F 83 16 111/67 90 08/22/18 07:46 08/22/18 07:46 08/22/18 07:46 08/22/18 07:46 08/22/18 10:39 Internal Medicine: Result - Labs CBC & Chem 7: 08/16/18 05:22 08/16/18 05:22 - ABG Interpretation ABG results: PT/INR, D-dimer PT 12.4 Seconds (9.4-12.1) H 08/11/18 05:35 Consult Discharge Plan - Plan Referrals: Yu Cruz APN [Primary Care Provider] -
[2018-08-22] MEDS: Insulin DETEMIR 100 UNIT/ML X5UNITS SQ SCH (21:55)
[2018-08-23] MEDS: *HR* OxyCODONE Immed Rel 5 MG TABLET PO PRN ×5 (02:57→21:06)
[2018-08-23] MEDS: *HR* Enoxaparin 40 MG/0.4 ML SYRINGE SQ SCH (06:53)
[2018-08-23] MEDS: Insulin LISPRO 300 UNITS/3 ML VIAL SQ SCH ×4 (07:35→20:54)
[2018-08-23] MEDS: [UNRECOGNIZED DRUG - OTHER] PO SCH (08:56)
[2018-08-23] MEDS: Budesonide/Formoterol 160/4.5 1 PUFF INH IH SCH ×2 (08:57→21:07)
[2018-08-23] MEDS: Fluticasone Propionate Nasal 50 MCG/SPRAY BOTTLE NS SCH (08:57)
[2018-08-23] MEDS: *HR* Metformin 500 MG TABLET PO SCH ×2 (08:58→16:45)
[2018-08-23] MEDS: Famotidine 20 MG TABLET PO SCH ×2 (08:58→21:06)
[2018-08-23] MEDS: *HR* LORazepam 0.5 MG TABLET PO SCH ×3 (08:58→21:06)
[2018-08-23] MEDS: Sennosides/Docusate Sodium TABLET PO SCH ×2 (08:58→21:06)
--- NOTE | 2018-08-23 11:44 | Internal Med Progress Note ---
Addendum entered and electronically signed by Daquan Kaiser MD 08/23/18 16:35: I have personally performed a face to face evaluation on this patient. I have r eviewed and agree with the care plan. History and Exam by me shows: Patient is without complaint except that she feels like she is developing a cold. She notes a dry, rattling cough. No dyspnea, no sore throat or earache, etc. She is otherwise feeling okay and is pleased with her bowel movements, etc. Discussed care with other providers and/or nursing. Patient has no complaint of chest discomfort, dyspnea, orthopnea, palpitations, nausea or vomiting, constipation or diarrhea, other changes in bowel habits, difficulty with urination, rash or itching, or other new complaints, except as mentioned above. Review of systems is otherwise negative. Examination: (Except as mentioned above): General: In no apparent distress. Alert and oriented 3. Nondiaphoretic. Head: Atraumatic and normocephalic. Respiratory: No use of accessory muscles. Lungs are clear throughout. Normal airflow. Cardiovascular: Regular rate and rhythm without murmur appreciated. Abdomen: Bowel sounds are normal. No hepatosplenomegaly mass or tenderness appreciated. Morbidly obese and therefore difficult to palpate deeply. Extremities: No cyanosis clubbing or edema. She still has edema and marked tenderness at left lower calf. Skin: Warm and non-diaphoretic with no new lesions noted. Addendum entered and electronically signed by Bisi Hendricks APN 08/23/18 13:57: Patient is nonweightbearing left lower extremity due to left tibial fracture. Patient will require a standard wheelchair to successfully complete daily living tasks of toileting, feeding, bathing dressing and grooming. Standard wheelchair is necessary due to the patient's impaired ambulation and mobility restrictions and would be handled both to resolve these daily living tasks using a cane or walker. This will allow her to safely maneuver around her home. The patient is willing to use a wheelchair and has been educated with therapy. Patient will also require a bedside commended. Wheelchair is unable to fit into bathroom. Original Note: Date of Encounter: 08/23/18 Time of Encounter: 11:44 - Assessment and plan (1) Tibial plateau fracture Current Visit: Yes Status: Inactive Assessment and plan: Continue PT and OT. Monitor progress. Continue Percocet and Flexeril. Follow up with ortho as scheduled. Qualifiers: Encounter type: sequela Fracture type: closed Laterality: left Qu alified Code(s): S82.142S - Displaced bicondylar fracture of left tibia, sequela (2) COPD (chronic obstructive pulmonary disease) Current Visit: Yes Status: Acute Assessment and plan: Controlled with inhaled meds. Continue oxygen per nasal cannula. Qualifiers: COPD type: unspecified COPD Qualified Code(s): J44.9 - Chronic obstructive pulmonary disease, unspecified (3) Tobacco use disorder Current Visit: Yes Status: Acute (4) Diabetes type 2, controlled Current Visit: Yes Status: Acute Assessment and plan: Controlled with current medication. Continue to monitor fingerstick blood sugar. Continue insulin per sliding scale. Qualifiers: Diabetes mellitus manager intermediate insulin use: with manager intermediate use Diabetes mellitus complication status: without complication Qualified Code(s): E11.9 - Type 2 diabetes mellitus without complications; Z79.4 - terminal clerk (current) use of insulin (5) Hypertension Current Visit: Yes Status: Acute Assessment and plan: Controlled with current medication. Monitor blood pressure. Qualifiers: Hypertension type: essential hypertension Qualified Code(s): I10 - Essential (primary) hypertension (6) History of MRSA infection Current Visit: Yes Status: Acute - Time Spent With Patient less than 15 minutes - Subjective Interval history: Participating well with therapy. Taking Flexeril and Percocet for pain. On chronic O2. Maintaining O2 sats. 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 Leaving today with therapy for home safety eval. Patient planning on discharge to home on . Maintaining appetite and hydration. Bowels moved yesterday. - Constitutional Vitals: Temp Pulse Resp BP Pulse Ox 98.0 F 90 16 132/80 96 08/23/18 07:16 08/23/18 07:16 08/23/18 07:16 08/23/18 07:16 08/23/18 07:16 General appearance: Present: cooperative, A&O X 3, morbidly obese, pleasant, answers questions appropriately - Head Head exam: Present: atraumatic, normocephalic - Eye Eye exam: Present: PERRL, conjuntiva pink, sclera anicteric Pupils: Present: PERRL - Neck Neck exam general surgery: Present: supple, trachea midline. Absent: lymphadenopathy - Respiratory Respiratory exam: Present: CTAB. Absent: accessory muscle use, rales, rhonchi, wheezes - Cardiovascular Cardiovascular exam: Present: RRR, +S1, +S2. Absent: diastolic murmur, gallop, rubs, systolic murmur - GI/Abdominal GI/Abdominal exam: Present: normal bowel sounds, soft, no peritoneal signs. Absent: distended, tenderness - Extremities Exam Extremities exam: Present: warm, radial pulses palpable and symmetrical. Absent: calf tenderness, cyanotic, pedal edema Additional comments: Left lower extremity valerie wrapped. - Neurological Exam Neurological exam: Present: CN II-XII intact, oriented X3, no focal deficits. Absent: pronater drift, facial droop, speech deficit - Skin Skin exam: Present: dry, intact Internal Medicine: Result - Labs CBC & Chem 7: 08/16/18 05:22 08/16/18 05:22 - ABG Interpretation ABG results: PT/INR, D-dimer PT 12.4 Seconds (9.4-12.1) H 08/11/18 05:35 Consult Discharge Plan - Plan Referrals: Yu Cruz APN [Primary Care Provider] -
[2018-08-23] MEDS: Insulin DETEMIR 100 UNIT/ML X5UNITS SQ SCH (21:05)
[2018-08-24] MEDS: *HR* OxyCODONE Immed Rel 5 MG TABLET PO PRN ×4 (06:31→21:43)
[2018-08-24] MEDS: *HR* Enoxaparin 40 MG/0.4 ML SYRINGE SQ SCH (06:32)
[2018-08-24] MEDS: Fluticasone Propionate Nasal 50 MCG/SPRAY BOTTLE NS SCH (08:31)
[2018-08-24] MEDS: Insulin LISPRO 300 UNITS/3 ML VIAL SQ SCH ×4 (08:31→21:38)
[2018-08-24] MEDS: *HR* Metformin 500 MG TABLET PO SCH ×2 (08:32→16:48)
[2018-08-24] MEDS: Budesonide/Formoterol 160/4.5 1 PUFF INH IH SCH ×2 (08:32→19:37)
[2018-08-24] MEDS: *HR* LORazepam 0.5 MG TABLET PO SCH ×3 (08:32→21:34)
[2018-08-24] MEDS: Sennosides/Docusate Sodium TABLET PO SCH ×2 (08:32→21:36)
[2018-08-24] MEDS: Famotidine 20 MG TABLET PO SCH ×2 (08:33→21:36)
[2018-08-24] MEDS: [UNRECOGNIZED DRUG - OTHER] PO SCH (08:33)
--- NOTE | 2018-08-24 11:53 | Internal Med Progress Note ---
Date of Encounter: 08/24/18 Time of Encounter: 11:51 - Assessment and plan (1) Comminuted fracture of shaft of tibia Current Visit: Yes Status: Inactive Assessment and plan: Patient with a Kiran wrap dressing to entire length of left leg. Dressing remains dry and intact. Distal CV checks them in normal. Patient states that her pain to her left leg has been managed better. Participating in physical therapy and progressing well. Qualifiers: Encounter type: subsequent encounter Fracture type: closed Fracture alignment: displaced Laterality: left Fracture healing: with nonunion Qualified Code(s): S82.252K - Displaced comminuted fracture of shaft of left tibia, subsequent encounter for closed fracture with nonunion (2) COPD (chronic obstructive pulmonary disease) Current Visit: Yes Status: Acute Assessment and plan: No acute issues. Patient's lungs are clear throughout upper mathis with diminished bases. We will continue with current medications. Qualifiers: COPD type: unspecified COPD Qualified Code(s): J44.9 - Chronic obstructive pulmonary disease, unspecified (3) Diabetes type 2, controlled Current Visit: Yes Status: Acute Assessment and plan: Acute issues. Patient's glucoses been fairly well controlled less than 200. We will continue with sliding scale coverage. Qualifiers: Diabetes mellitus assisted insulin use: with assisted use Diabetes mellitus complication status: without complication Qualified Code(s): E11.9 - Type 2 diabetes mellitus without complications; Z79.4 - long term care administrator (current) use of insulin (4) Hypertension Current Visit: Yes Status: Acute Assessment and plan: Vital signs are stable. We will continue with current medications. Qualifiers: Hypertension type: essential hypertension Qualified Code(s): I10 - Essential (primary) hypertension - Time Spent With Patient less than 15 minutes - Subjective Interval history: Patient appears relaxed. Patient states that she continues to have moderate pain to her left leg which increases during mobilization, but that her pain has been improving over past several days and it is tolerable with current pain medications. Left lower leg continues with Kiran wrap dressing in place, which is dry and intact - Constitutional Vitals: Temp Pulse Resp BP Pulse Ox 97.8 F 91 16 142/81 98 08/24/18 07:39 08/24/18 07:39 08/24/18 07:39 08/24/18 07:39 08/24/18 07:39 General appearance: Present: cooperative, A&O X 3, morbidly obese, pleasant, answers questions appropriately - Head Head exam: Present: atraumatic, normocephalic - Eye Eye exam: Present: PERRL, conjuntiva pink, sclera anicteric Pupils: Present: PERRL - Neck Neck exam general surgery: Present: supple, trachea midline. Absent: lymphadenopathy - Respiratory Respiratory exam: Present: CTAB. Absent: accessory muscle use, rales, rhonchi, wheezes - Cardiovascular Cardiovascular exam: Present: RRR, +S1, +S2. Absent: diastolic murmur, gallop, rubs, systolic murmur - GI/Abdominal GI/Abdominal exam: Present: normal bowel sounds, soft, no peritoneal signs. Absent: distended, tenderness - Extremities Exam Extremities exam: Present: warm, radial pulses palpable and symmetrical. Absent: calf tenderness, cyanotic, pedal edema Additional comments: Left leg with dressing dry and intact - Neurological Exam Neurological exam: Present: CN II-XII intact, oriented X3, no focal deficits. Absent: pronater drift, facial droop, speech deficit - Skin Skin exam: Present: dry, intact Internal Medicine: Result - Labs CBC & Chem 7: 08/16/18 05:22 08/16/18 05:22 - ABG Interpretation ABG results: PT/INR, D-dimer PT 12.4 Seconds (9.4-12.1) H 08/11/18 05:35 Consult Discharge Plan - Plan Referrals: Yu Cruz APN [Primary Care Provider] -
[2018-08-24] MEDS: Insulin DETEMIR 100 UNIT/ML X5UNITS SQ SCH (21:38)
[2018-08-25] MEDS: Acetaminophen 325 MG TABLET PO PRN (00:31)
[2018-08-25] MEDS: *HR* Enoxaparin 40 MG/0.4 ML SYRINGE SQ SCH (05:35)
[2018-08-25] MEDS: *HR* OxyCODONE Immed Rel 5 MG TABLET PO PRN ×2 (05:42→11:10)
[2018-08-25 07:27] VITALS: BP 145/86
[2018-08-25] MEDS: Insulin LISPRO 300 UNITS/3 ML VIAL SQ SCH ×2 (08:10→11:35)
[2018-08-25] MEDS: *HR* LORazepam 0.5 MG TABLET PO SCH (08:11)
[2018-08-25] MEDS: Famotidine 20 MG TABLET PO SCH (08:11)
[2018-08-25] MEDS: Sennosides/Docusate Sodium TABLET PO SCH (08:12)
[2018-08-25] MEDS: *HR* Metformin 500 MG TABLET PO SCH (08:12)
[2018-08-25] MEDS: [UNRECOGNIZED DRUG - OTHER] PO SCH (08:12)
[2018-08-25] MEDS: Fluticasone Propionate Nasal 50 MCG/SPRAY BOTTLE NS SCH (09:42)
[2018-08-25] MEDS: Budesonide/Formoterol 160/4.5 1 PUFF INH IH SCH (10:23)
--- NOTE | 2018-08-25 11:41 | Discharge Summary ---
Addendum entered and electronically signed by Jaqui Haley 08/26/18 14:08: I have personally performed a face to face evaluation on this patient. I have reviewed and agree with the care plan. Original Note: Date of Encounter: 08/25/18 Time of Encounter: 11:34 - Discharge Diagnosis (1) Tibial plateau fracture Priority: Primary Status: Acute Comments: Follow-up with surgeon as scheduled. Continue PT and OT. drainage to wound reported to surgical Walter VARGAS. will be followed by home health nurse. Qualifiers: Encounter type: sequela Fracture type: closed Laterality: left Qualified Code(s): S82.142S - Displaced bicondylar fracture of left tibia, sequela (2) COPD (chronic obstructive pulmonary disease) Priority: Secondary Status: Acute Comments: Controlled with current medication. Wears chronic oxygen at bedtime per nasal cannula. Follow up with PCP. Qualifiers: COPD type: unspecified COPD Qualified Code(s): J44.9 - Chronic obstructive pulmonary disease, unspecified (3) Tobacco use disorder Priority: Secondary Status: Acute Comments: Educated on smoking cessation (4) Diabetes type 2, controlled Priority: Secondary Status: Chronic Comments: Controlled with current medication. Monitor fingerstick blood sugar. Follow up with PCP. Qualifiers: Diabetes mellitus half-way insulin use: with half-way use Diabetes mellitus complication status: without complication Qualified Code(s): E11.9 - Type 2 diabetes mellitus without complications; Z79.4 - nursing home (current) use of insulin (5) Hypertension Priority: Secondary Status: Chronic Comments: Controlled with current medication. Monitor blood pressure. Follow up with PCP. Qualifiers: Hypertension type: essential hypertension Qualified Code(s): I10 - Essential (primary) hypertension (6) History of MRSA infection Priority: Secondary Status: Inactive Hospital course: Ms. Archer is a 53 year old female discharging to home with family status post left tibial fracture. Patient following up with surgeon and trauma clinic. Pain is controlled with current medication. Will continue home PT, OT, nursing and aid. Discharge discussed with: patient, family, nurse, social work - Time Spent with Patient Total time spent providing and/or coordinating discharge services: Less than 30 minutes - Discharge Medications Prescriptions: No Action Oxygen 1 each .ROUTE AD Ibuprofen [Motrin] 800 mg PO Q8HR PRN PRN Reason: Pain LORazepam [Ativan] 1 mg PO HS Pramipexole [Mirapex] 1.5 mg PO TID Cholecalciferol (D-3) [Vitamin D] 1,000 unit PO DAILY Magnesium Oxide [Magnesium] 500 mg PO DAILY L.acidoph,Paracasei, B.lactis [Probiotic] 1 cap PO DAILY EPINEPHrine [Auvi-Q] 0.3 mg IJ DAILY PRN PRN Reason: Allergic Symptoms Biotin 5 mg PO DAILY Tiotropium [Spiriva] 1 cap IH DAILY Fluticasone Propionate Nasal [Flonase] 2 spray NS DAILY Budesonide/Formoterol 160/4.5 [Symbicort] 2 puff IH BIDR Albuterol Sulfate [Proair HFA] 2 puff IH QID Albuterol Neb [Proventil Neb] 2.5 mg IH Q4HR PRN PRN Reason: Shortness Of Breath Citalopram Hydrobromide [Celexa] 40 mg PO DAILY Bumetanide [Bumex] 2 mg PO DAILY Omeprazole [PriLOSEC] 20 mg PO DAILY Metformin HCl [Fortamet] 1,000 mg PO BID Montelukast [Singulair] 10 mg PO HS Lisinopril-HCTZ 20-12.5 [Prinzide 20-12.5] 1 each PO DAILY #30 tablet levoFLOXacin [Levofloxacin] 500 mg PO DAILY #10 tablet predniSONE [PredniSONE] 60 mg PO DAILY #5 tablet Guaifenesin [Mucinex] 600 mg PO BID PRN #20 tab.er.12h PRN Reason: Congestion predniSONE [PredniSONE] 60 mg PO DAILY #9 tablet Home Medications: Albuterol Sulfate [Albuterol Inhaler] 2 puff IH QID 04/02/15 [History] Budesonide/Formoterol 160/4.5 [Symbicort] 2 puff IH BIDR 04/02/15 [History] Fluticasone Propionate Nasal [Flonase] 2 spray NS DAILY 04/02/15 [History] Tiotropium [Spiriva] 1 cap IH DAILY 04/02/15 [History] Albuterol Neb [Proventil Neb] 2.5 mg IH Q4HR PRN 12/29/15 [History] Citalopram Hydrobromide [Celexa] 40 mg PO DAILY 12/29/15 [History] Metformin HCl [Fortamet] 1,000 mg PO BID 12/29/15 [History] Montelukast [Singulair] 10 mg PO HS 12/29/15 [History] Omeprazole [PriLOSEC] 20 mg PO DAILY 12/29/15 [History] Lisinopril-HCTZ 20-12.5 [Prinzide 20-12.5] 1 each PO DAILY #30 tablet 07/04/16 [Rx] Biotin 5 mg PO DAILY 02/26/17 [History] Cholecalciferol (D-3) [Vitamin D] 1,000 unit PO DAILY 02/26/17 [History] EPINEPHrine [Auvi-Q] 0.3 mg IJ DAILY PRN 02/26/17 [History] Ibuprofen [Motrin] 800 mg PO Q8HR PRN 02/26/17 [History] L.acidoph,Paracasei, B.lactis [Probiotic] 1 cap PO DAILY 02/26/17 [History] LORazepam [Ativan] 1 mg PO HS 02/26/17 [History] Magnesium Oxide [Magnesium] 500 mg PO DAILY 02/26/17 [History] Oxygen 1 each .ROUTE AD 02/26/17 [History] Pramipexole [Mirapex] 1.5 mg PO TID 02/26/17 [History] Guaifenesin [Mucinex] 600 mg PO BID PRN #20 tab.er.12h 06/27/17 [Rx] levoFLOXacin [Levofloxacin] 500 mg PO DAILY #10 tablet 06/27/17 [Rx] Acetaminophen [Tylenol] 650 mg PO Q6HR PRN tablet 08/25/18 [Rx] Artificial Tears SOLN [Akwa Tears] 1 drop BOTH EYES QID PRN bottle 08/25/18 [Rx] Enoxaparin [Lovenox] 40 mg SQ 0600 10 Days #10 syringe 08/25/18 [Rx] Famotidine [Pepcid] 20 mg PO BID tablet 08/25/18 [Rx] Insulin DETEMIR [Levemir] 10 unit SQ HS [id number] 08/25/18 [Rx] Losartan [Cozaar] 25 mg PO DAILY 14 Days #14 tablet 08/25/18 [Rx] Polyethylene Glycol 3350 [MiraLAX] 17 gm PO DAILY PRN powd.pack 08/25/18 [Rx] Potassium Chloride 20 meq PO DAILY 14 Days #14 tab.er.prt 08/25/18 [Rx] Sennosides/Docusate Sodium [Senna Plus] 1 each PO BID tablet 08/25/18 [Rx] Allergies/Adverse Reactions: Allergy/AdvReac Type Severity Reaction Status Date / Time aspirin [ASA] Allergy Nose Bleed Verified 08/06/18 17:22 clarithromycin [From Biaxin] Allergy Anaphylaxis Verified 08/06/18 17:22 clindamycin Allergy Anaphylaxis Verified 08/06/18 17:22 doxycycline Allergy Anaphylaxis Verified 08/06/18 17:22 sulfamethoxazole Allergy Anaphylaxis Verified 08/06/18 17:22 [From Bactrim] trimethoprim [From Bactrim] Allergy Anaphylaxis Verified 08/06/18 17:22 venom-honey bee Allergy Nausea Verified 08/06/18 17:22 [bee venom (honey bee)] Date of admission: 08/10/18 17:21 Primary care physician: Yu Cruz APN Consults: 08/10/18 18:24 Consult to Occupational Therapy [CONS] Routine Comment: Evaluate, develop and implement POC Reason for Consult: left tib fx Does patient have active BEDREST order?: No Is patient medically & hemodynamically stable?: Yes Patient assessed for mobility or mobilized this visit?: Yes Consult to Physical Therapy [CONS] Routine Comment: Evaluate, develop and implement POC Reason for Consult: left tib fx Does patient have active BEDREST order?: No Is patient medically & hemodynamically stable?: Yes Patient assessed for mobility or mobilized this visit?: Yes Consult to Recreational Therapy [CONS] Routine Comment: Evaluate, develop and implement POC Consult to Ag Service Manager [CONS] Routine Reason for SW Consult: discharge planning 08/11/18 12:59 Consult to Psychology [CONS] Routine Consulting Provider: Zonia Denson Reason for Consult: Possible depression; adjustment disorder Call Completed: No Discharging clinician: Daquan Kaiser Anticipated date of discharge: 08/25/18 - Constitutional Vitals: Temp Pulse Resp BP Pulse Ox 98.6 F 81 18 145/86 92 08/25/18 07:00 08/25/18 07:00 08/25/18 10:25 08/25/18 07:00 08/25/18 10:25 General appearance: Present: cooperative, A&O X 3, morbidly obese, pleasant, no acute distress, answers questions appropriately - Head Head exam: Present: atraumatic, normocephalic - Eye Eye exam: Present: PERRL, conjuntiva pink, sclera anicteric Pupils: Present: PERRL - Neck Neck exam general surgery: Present: supple, trachea midline. Absent: lymphadenopathy - Respiratory Respiratory exam: Present: CTAB. Absent: accessory muscle use, rales, rhonchi, wheezes - Cardiovascular Cardiovascular exam: Present: RRR, +S1, +S2. Absent: diastolic murmur, gallop, rubs, systolic murmur - GI/Abdominal GI/Abdominal exam: Present: normal bowel sounds, soft, no peritoneal signs. Absent: distended, tenderness - Extremities Exam Extremities exam: Present: warm, radial pulses palpable and symmetrical. Absent: calf tenderness, cyanotic, pedal edema - Incison Comments: Left lower leg incisions times 2 with slight amount of sanguinous drainage. - Neurological Exam Neurological exam: Present: CN II-XII intact, oriented X3, no focal deficits. Absent: pronater drift, facial droop, speech deficit - Skin Skin exam: Present: dry, intact - Patient Status Disposition: Home Health Service Condition: Good Functional capacity at discharge: wheelchair bound Overall status at discharge: patient is progressing back to baseline - Discharge Instructions Follow Up With: Amanda Watson PAC [Physician Excellence Coach] - 09/06/18 10:30 am Yu Cruz APN [Primary Care Provider] - 09/02/18 3:00 pm Hermilo Nielsen MD [Non-Partnered Physician] - Additional Instructions: non wt bearing left lower extremity - Diet and Activity Activity: as per physical therapy Diet: diabetic diet
--- NOTE | 2018-08-25 11:59 | Physician Discharge Referral ---
Addendum entered and electronically signed by Jaqui Haley 08/26/18 14:07: For this encounter, I have reviewed the FLIGHT CONTROLS ENGINEER or PA documentation, treatment plan, and medical decision making; and I have had face to face time with this patient. Original Note: Home Health/Hosp Referral Info Transfer to: Home Health Provider in Charge Post Discharge: PCP - Diagnosis (1) Tibial plateau fracture Priority: Primary Status: Acute (2) COPD (chronic obstructive pulmonary disease) Priority: Secondary Status: Chronic (3) Tobacco use disorder Priority: Secondary Status: Chronic (4) Diabetes type 2, controlled Priority: Secondary Status: Chronic (5) Hypertension Priority: Secondary Status: Chronic (6) History of MRSA infection Priority: Secondary Status: Inactive - Respiratory Orders Smoking Cessation: Smoking cessation has been advised. For more information, call the [employer] Tobacco Quit Line at 7-221-EXBV-NOW. - Diet/Nutrition Diet/Nutrition Orders: No Concentrated Sweets - Activity Activity Orders: Walker - Services Needed Following services are medically necessary services: Nursing, Home Health Aide, Physical Therapy, Occupational Therapy - Transfer Medications Prescriptions: Enoxaparin [Lovenox] 40 mg SQ 0600 10 Days #10 syringe Losartan [Cozaar] 25 mg PO DAILY 14 Days #14 tablet Potassium Chloride 20 meq PO DAILY 14 Days #14 tab.er.prt Home Medications: Albuterol Sulfate [Albuterol Inhaler] 2 puff IH QID 04/02/15 [History] Budesonide/Formoterol 160/4.5 [Symbicort] 2 puff IH BIDR 04/02/15 [History] Fluticasone Propionate Nasal [Flonase] 2 spray NS DAILY 04/02/15 [History] Tiotropium [Spiriva] 1 cap IH DAILY 04/02/15 [History] Albuterol Neb [Proventil Neb] 2.5 mg IH Q4HR PRN 12/29/15 [History] Citalopram Hydrobromide [Celexa] 40 mg PO DAILY 12/29/15 [History] Metformin HCl [Fortamet] 1,000 mg PO BID 12/29/15 [History] Montelukast [Singulair] 10 mg PO HS 12/29/15 [History] Omeprazole [PriLOSEC] 20 mg PO DAILY 12/29/15 [History] Lisinopril-HCTZ 20-12.5 [Prinzide 20-12.5] 1 each PO DAILY #30 tablet 07/04/16 [Rx] Biotin 5 mg PO DAILY 02/26/17 [History] Cholecalciferol (D-3) [Vitamin D] 1,000 unit PO DAILY 02/26/17 [History] EPINEPHrine [Auvi-Q] 0.3 mg IJ DAILY PRN 02/26/17 [History] Ibuprofen [Motrin] 800 mg PO Q8HR PRN 02/26/17 [History] L.acidoph,Paracasei, B.lactis [Probiotic] 1 cap PO DAILY 02/26/17 [History] LORazepam [Ativan] 1 mg PO HS 02/26/17 [History] Magnesium Oxide [Magnesium] 500 mg PO DAILY 02/26/17 [History] Oxygen 1 each .ROUTE AD 02/26/17 [History] Pramipexole [Mirapex] 1.5 mg PO TID 02/26/17 [History] Guaifenesin [Mucinex] 600 mg PO BID PRN #20 tab.er.12h 06/27/17 [Rx] levoFLOXacin [Levofloxacin] 500 mg PO DAILY #10 tablet 06/27/17 [Rx] Acetaminophen [Tylenol] 650 mg PO Q6HR PRN tablet 08/25/18 [Rx] Artificial Tears SOLN [Akwa Tears] 1 drop BOTH EYES QID PRN bottle 08/25/18 [Rx] Enoxaparin [Lovenox] 40 mg SQ 0600 10 Days #10 syringe 08/25/18 [Rx] Famotidine [Pepcid] 20 mg PO BID tablet 08/25/18 [Rx] Insulin DETEMIR [Levemir] 10 unit SQ HS [id number] 08/25/18 [Rx] Losartan [Cozaar] 25 mg PO DAILY 14 Days #14 tablet 08/25/18 [Rx] Polyethylene Glycol 3350 [MiraLAX] 17 gm PO DAILY PRN powd.pack 08/25/18 [Rx] Potassium Chloride 20 meq PO DAILY 14 Days #14 tab.er.prt 08/25/18 [Rx] Sennosides/Docusate Sodium [Senna Plus] 1 each PO BID tablet 08/25/18 [Rx] Allergies/Adverse Reactions: Allergy/AdvReac Type Severity Reaction Status Date / Time aspirin [ASA] Allergy Nose Bleed Verified 08/06/18 17:22 clarithromycin [From Biaxin] Allergy Anaphylaxis Verified 08/06/18 17:22 clindamycin Allergy Anaphylaxis Verified 08/06/18 17:22 doxycycline Allergy Anaphylaxis Verified 08/06/18 17:22 sulfamethoxazole Allergy Anaphylaxis Verified 08/06/18 17:22 [From Bactrim] trimethoprim [From Bactrim] Allergy Anaphylaxis Verified 08/06/18 17:22 venom-honey bee Allergy Nausea Verified 08/06/18 17:22 [bee venom (honey bee)] Certification: Further, I certify that my clinical findings support that this patient is homebound (i.e. absences from home require considerable and taxing effort and are for medical reasons or rastafarian services or infrequently or short duration when for other reasons) because: Homebound Reason: Patient requires assistance of a person or device to safely leave home, Post-surgery restriction and or conditions limit ability to leave home, Leaving home requires considerable and taxing effort due to condition Attestation: My signature below is to certify that this patient is under my care and that I, or nurse practitioner, or a physician's digital sales assistant working with me, has a [id number] encounter with this patient.
== END 2018-08-25 12:45 | disposition home health service (06) | DRG 560 ==
LOC: INPGRE 17:21